=== PATIENT | female | born 1960 | race Caucasian/White ===

== ENCOUNTER 2025-01-20 13:07 | Inpatient (IN) ==
[2025-01-20 13:47] LABS: Hematocrit (blood only) 40.5 % (37.0-47.0); Hemoglobin 13.7 g/dl (12.0-16.0); Immature Granulocytes # (auto) 0.09 K/uL (0.01-0.20); Immature Granulocytes % (auto) 0.9 %; Mean Corpuscular Hemoglobin 31.5 pg (25.0-34.0); Mean Corpuscular Volume 93.1 fL (80.0-100.0); Platelet Count 197 K/uL (130-400); RDW Standard Deviation 47.1 fL (36.4-46.3); Red Blood Count 4.35 M/uL (4.20-5.40); White Blood Count 10.44 K/ul (4.8-10.8)
--- NOTE | 2025-01-20 13:55 | XRay Report ---
XR chest 1V portable CLINICAL HISTORY: Chest pain, nonspecific COMPARISON STUDY: None FINDINGS: There is prominent cardiomegaly with pulmonary vascular congestion. There is diffuse pulmon sue interstitial prominence. No lobar consolidation, pleural effusion, or pneumothorax. IMPRESSION: 1. CHF. 2. Diffuse pulmonary interstitial opacities could represent pulmonary edema or interstitial pneumonia . ACT 112: Negative or not required by law. Electronically signed by: Shiva Avalos M.D. 01/20/2025 1:54 PM
[2025-01-20 14:00] LABS: Alanine Aminotransferase 56.0 U/L (7-52); Albumin Globulin Ratio 1.7 (0.9-2); Alkaline Phosphatase 61.0 U/L (34-104); Anion Gap 6.0 (3-11); Bilirubin,Total 0.6 mg/dl (0.2-1.0); Blood Urea Nitrogen 24.0 mg/dl (6-23); Calcium 8.8 mg/dl (8.6-10.3); Carbon Dioxide 33.0 mmol/L (21-32); Chloride 105.0 mmol/L (98-107); Creatinine Clr Calc Pharmacy 73.5 ml/min; Globulin 2.4 gm/dl (2.5-4.0); Glucose 86.0 mg/dl (70-99(Fasting)); Potassium 3.6 mmol/L (3.5-5.1); Sodium 144.0 mmol/L (136-145); Total Protein 6.5 gm/dl (6.0-8.3)
[2025-01-20 14:12] LABS: INR 1.0 (0.9-1.1); Partial Thromboplastin Time 27 Seconds (21-31); Prothrombin Time 11.3 Seconds (9.0-12.0)
--- NOTE | 2025-01-20 14:37 | Cardiology Consultation ---
Date of Consultation January 20, 2025 Assessment & Plan (1) Acute decompensated heart failure: (2) Volume overload: (3) Elevated troponin: (4) Bradycardia, sinus: (5) Hypertensive heart disease: (6) Diastolic dysfunction: Plan 65-year-old female with longstanding hypertension, hypertensive heart disease, diastolic dysfunction, underlying asthmatic lung disease, type 2 diabetes mellitus, and factor V Leiden mutation admitted to [facility] with evidence of acute decompensated heart failure, marked sinus bradycardia, uncontrolled hypertension. Troponin minimally elevated, without acute ST segment change on EKG, and without overt angina symptoms. Options of management discussed with patient and . Recommendations: * Admit to telemetry * Refer for resting echocardiography * Discontinue indapamide, utilize IV furosemide +/- spironolactone * Supplement potassium * Hold atenolol (50 mg/day) * Likely start carvedilol at 6.25 mg twice per day in the evening of 01/21 * Amlodipine and gabapentin are likely contributing factors to fluid retention. Will continue amlodipine for now noting blood pressures thus far * Continue benazepril, aspirin and atorvastatin Supervising Physician Co-Signing Physician Notes Patient was seen and personally examined. Full assessment and plan as outlined by advanced provider above. Care management discussed and personally endorsed. 65-year-old female with longstanding hypertension/hypertensive heart disease past diastolic heart failure who sought routine medical examination today but noted symptoms of increased weight gain orthopnea and lower extremity edema. E KG with marked sinus bradycardia on review. Echocardiogram today preliminary review Moderate left hypertrophy with borderline global hypokinesis subtle discrete hypokinesis basilar posterior wall. EF 45 to 50%. Grade 2 diastolic Impression as above acute decompensated mixed diastolic, in the setting of marked bradycardia/hypertension Moderate volume overload present abdomen lower extremity edema Plan as outlined Discontinue atenolol (already took today) Maintain telemetry Begin diuresis with IV furosemide, add spironolactone as renal and electrolytes allow History of Present Illness Reason for Consultation: Bradycardia, CHF Requesting Physician: [facility] Attending Physician: Eduardo Villagomezist Service History of Present Illness Nikky Frazier is a very pleasant 65-year-old female who was referred to [facility] ER on , January 20, 2025 due to concerns regarding bradycardia and congestive heart failure. Patient notes obtaining [employer] insurance and establishing care with a new PCP, Dr. Jennifer Bergeron. Over the past month patient has been experiencing worsening shortness of breath that she has attributed to her underlying asthma and changes in the weather. On questioning, patient has a nonproductive cough, orthopnea without PND, significant lower extremity peripheral edema that improves some overnight but does not resolve, and weight gain of 10 to 15 pounds without dietary changes or significant adjustments in medications. Patient attributes issues at nighttime to sciatic pain for which she sleeps on her side and takes gabapentin. Prior testing for sleep apnea was negative for sleep disordered breathing back in April 2012. EKG obtained at PCP's office raised concern for high degree heart block however personal review reveals marked sinus bradycardia with occasional PACs. No chest pain. No tachypalpitations. No excessive fatigue, unusual tiredness, dizziness, lightheadedness, near-syncope, or syncope. Intermittent hypoglycemic episodes noted, associated with feeling clammy and diaphoretic. Patient does have a history of hyperthyroidism treated with nuclear therapy, now hypothyroid with last TSH within normal range in August 2024. No rash. No tick bites. No outside pets (2 indoor cats). Since being placed on the monitor in the ER patient's heart rates have been in 30s and 40s, predominantly marked sinus bradycardia with occasional PACs, rare PVCs with compensatory pause, intermittent junctional rhythm. 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 Low HDL, dyslipidemia. 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 Asthmatic lung disease. Hiatal hernia GERD History of hyperthyroidism [place] teeth extraction Gum Surgery Knee arthroscopy Liver biopsy Cholecystectomy Vaginal hysterectomy Family History: Positive for heart disease in father who suffered myocardial infarction and underwent coronary artery bypass grafting at age 58, passing suddenly of possible myocardial infarction 5 years later. Mother with history of breast cancer, dementia Social History: Non-smoker. No significant alcohol. No illegal drug use. 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 Lives with who was present for entire consultation. Two grown children. Allergies Allergy/AdvReac Type Severity Reaction Status Date / Time coconut Allergy Intermediate Hives Verified 02/25/22 15:05 Sulfa (Sulfonamide Allergy Unknown HIVES Verified 02/25/22 15:05 Antibiotics) azithromycin AdvReac Severe Diarrhea Verified 02/25/22 15:05 Home Medications Medication Instructions Recorded Confirmed Type amlodipine 2.5 mg tablet (Norvasc) 2.5 mg PO QAM 04/20/19 02/25/22 History aspirin 81 mg tablet,delayed 81 mg PO QAM 04/20/19 02/25/22 History release (Enteric Coated Aspirin) atenolol 50 mg tablet 50 mg PO QAM 04/20/19 02/25/22 History atorvastatin 20 mg tablet (Lipitor) 20 mg PO QAM 04/20/19 02/25/22 History benazepril 40 mg tablet 40 mg PO QAM 04/20/19 02/25/22 History calcium carbonate 600 mg PO BID 04/20/19 02/25/22 History cholecalciferol (vitamin D3) 50 2,000 units PO QAM 04/20/19 02/25/22 History mcg (2,000 unit) capsule fexofenadine 180 mg tablet 180 mg PO QAM 04/20/19 02/25/22 History (Jessica Allergy) fluticasone 250 mcg-salmeterol 50 1 puffs inhalation BID 04/20/19 02/25/22 History mcg/dose blistr powdr for inhalation (Advair Diskus) fluticasone propionate 50 2 sprays intranasal QAM 04/20/19 02/25/22 History mcg/actuation nasal spray,suspension (Flonase Allergy Relief) indapamide 2.5 mg tablet 5 mg PO QAM 04/20/19 02/25/22 History insulin aspart U-100 100 unit/mL 1 sliding scale dose subcut 04/20/19 02/25/22 History subcutaneous cartridge (Novolog USEASDIRECTD PenFill U-100 Insulin aspart) insulin glargine 100 unit/mL 90 units subcut AMPM 04/20/19 02/25/22 History subcutaneous solution (Lantus U-100 Insulin) levothyroxine 175 mcg tablet 175 mcg PO QAM 04/20/19 02/25/22 History (Synthroid) metformin 1,000 mg tablet 1,000 mg PO BID 04/20/19 02/25/22 History montelukast 10 mg tablet 10 mg PO QPM 04/20/19 02/25/22 History (Singulair) multivitamin 1 tab PO QAM 04/20/19 02/25/22 History naproxen sodium 220 mg tablet 440 mg PO QAM 04/20/19 02/25/22 History (Flanax (naproxen)) potassium chloride 10 mEq 10 meq PO QAM 04/20/19 02/25/22 History capsule,extended release semaglutide 1 mg/dose (2 mg/1.5 mg subcut 02/25/22 02/25/22 History mL) subcutaneous pen injector (Ozempic) omeprazole 40 mg capsule,delayed See Rx Instructions .Route 09/14/24 Rx release .COMPLEX #90 caps Patient History 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 Surgical History History of esophagogastroduodenoscopy (EGD) (04/2019) H/O vaginal hysterectomy History of carpal tunnel release bilateral History of arthroscopy left knee History of cholecystectomy H/O colonoscopy Family History Father Family history of diabetes mellitus Brother Family history of diabetes mellitus Grandmother (Paternal) Family history of diabetes mellitus Social History Smoking Status: Never smoker Second Hand Exposure: Yes (as a child); Do You Dip or Chew Tobacco: No; Hx Alcohol Use: No Hx Substance Use: No Preferred Language: [place] Communication Ability: Effective Night Shift Manager Required: No Beliefs That Will Affect Care: None marital status: Current Living Situation: Spouse and Family Feels Safe at Home: Yes Assistive Devices: Glasses Review of Systems Review of Systems: Complete Review of Systems is as stated above, negative, or noncontributory. Physical Exam Physical Exam: General: A&Ox3. NAD. Elevated BMI. HENT: Normocephalic. Atraumatic. Eyes: PER. Conjunctiva pink, sclera clear. Neck: JVD. Heart: Irregular, 44 bpm. Grade I-II/ systolic murmur. No diastolic murmur. Lungs: Diminished. Decreased. Scattered rales, expiratory wheeze. Abdomen: +BS. Soft. Nontender. No masses or organomegaly. Extremities: 3+ pitting edema to above the knees. Limited neurological examination is without focal deficits. Pulses: Posterior tibial pulses not appreciated. Results & Data Vital Signs (Past 12 Hours) Vital Signs Temp Pulse Pulse Resp BP Pulse Ox O2 Del Method 01/20/25 14:06 45 L 17 94 Room Air 01/20/25 14:02 36 L 01/20/25 13:49 94 Room Air 01/20/25 13:49 94 Room Air 01/20/25 13:49 52 L 01/20/25 13:48 94 Room Air 01/20/25 13:13 36.6 C 46 L 18 162/75 H 94 Room Air Laboratory Results Cardiac Enzymes 01/20/25 Range/Units 13:20 AST 42 H (13-39) U/L Troponin I High Sens 22.0 H (0-14) pg/ml B-Natriuretic Peptide 211 H (0-100) pg/ml Coagulation 01/20/25 Range/Units 13:20 PT 11.3 (9.0-12.0) Seconds APTT 27 (21-31) Seconds B-Natriuretic Peptide 211 H (0-100) pg/ml CBC 01/20/25 Range/Units 13:20 WBC 10.44 (4.8-10.8) K/ul RBC 4.35 (4.20-5.40) M/uL Hgb 13.7 (12.0-16.0) g/dl Hct 40.5 (37.0-47.0) % Plt Count 197 (130-400) K/uL Neut # (Auto) 6.29 (1.40-6.50) K/uL Lymph # (Auto) 2.54 (1.20-3.40) K/uL Stephens # (Auto) 1.02 H (0.11-0.59) K/uL Eos # (Auto) 0.44 (0.00-0.50) K/uL Baso # (Auto) 0.06 (0.00-0.20) K/uL Comprehensive Metabolic Panel 01/20/25 Range/Units 13:20 Sodium 144 (136-145) mmol/L Potassium 3.6 (3.5-5.1) mmol/L Chloride 105 (98-107) mmol/L Carbon Dioxide 33 H (21-32) mmol/L BUN 24 H (6-23) mg/dl Creatinine 1.05 (0.6-1.2) mg/dl Glucose 86 (70-99(Fasting)) mg/dl Calcium 8.8 (8.6-10.3) mg/dl AST 42 H (13-39) U/L ALT 56 H (7-52) U/L Alkaline Phosphatase 61 (34-104) U/L Total Protein 6.5 (6.0-8.3) gm/dl Albumin 4.1 (3.4-5.0) gm/dl Intake and Output 01/19/25 01/20/25 01/20/25 22:59 06:59 14:59 Other: Weight 125.6 kg Weight Measurement Method Chair Scale Patient Weight 01/21/25 06:59 Weight 125.6 kg Diagnostic Findings Outpatient EKG x 2 personally reviewed, revealing marked sinus bradycardia with premature supraventricular complexes, nonspecific interventricular conduction block. EKG on presentation to the ER revealed marked sinus bradycardia 43 bpm with sinus arrhythmia, nonspecific interventricular conduction delay, voltage criteria for LVH, nonspecific STT wave abnormality. QTc 408 ms. PG Care Time/CCT Total # of Minutes Spent Total Time Spent with Patient: Total time spent is greater than 50% in coordination of care (as documented) at patient's floor/unit and/or counseling patient: Coding Level of Care Code 56613 IN/OBS CONSULT LVL 5,80M Diagnoses Acute decompensated heart failure I50.9 Volume overload E87.70 Elevated troponin R79.89 Bradycardia, sinus R00.1 Hypertensive heart disease I11.9 Diastolic dysfunction I51.89
--- NOTE | 2025-01-20 14:43 | Emergency Department Note ---
Impression & Plan Acute CHF, Bilateral leg edema, Bradycardia, sinus, Elevated troponin, Elevated brain natriuretic peptide (BNP) level, Transaminitis, Pulmonary edema ED Provider Note HISTORY OF PRESENT ILLNESS: Patient is a 65-year-old female presenting with lower extremity edema. Patient was sent for her primary care provider's office due to concern for potential heart block. She was found to be bradycardic and had a "abnormal EKG" and was sent to the ER. Patient reports she has been having lower extremity edema for the last month. She is not on any diuretic medications. She denies any chest pain but does report she is intermittently short of breath. She denies any DVT or PE history. Denies any history of heart failure. She denies feeling lightheaded or dizzy. ROS: as above PHYSICAL EXAM: Constitutional: Patient appears in no acute distress. HENT: Head: Normocephalic and atraumatic. Eyes: EOMI, PERRL Mouth/Throat: Mucous membranes moist. Neck: Trachea midline. Neck supple. Cardiovascular: RRR, No murmurs, rubs or gallops. Intact distal pulses. Pulmonary/Chest: No respiratory distress. Breath sounds clear and equal bilaterally. Coarse breath sounds bilaterally. Patient is conversationally dyspneic. Abdominal: Abdomen soft, no tenderness, rebound or guarding. Musculoskeletal: No tenderness or deformity noted. +3 pitting edema of bilateral lower extremities extending to the tibia. Skin: Warm and dry. No rash, erythema, pallor or cyanosis Psychiatric: Appropriate mood and affect for situation. Neurological: Alert and keenly responsive. CN II-XII grossly intact, moving all extremities equally and fully. MDM: - Vitals signs showed hypertension and bradycardia. - History obtained via patient. History as above. - Chronic conditions affecting care: hypothyroidism; HTN; HLD - Differential diagnoses include, but are not limited to: Congestive heart failure; acute coronary syndrome; COPD/asthma exacerbation; pulmonary edema; pulmonary embolism; pneumonia; pneumothorax; viral syndrome - Order placed for continuous cardiac monitoring. At this time, monitor showed rate of 44 bpm with normal sinus rhythm, per my interpretation. - External medical records reviewed. - EKG image interpreted by myself showed normal sinus rhythm. Rate bradycardic at 43 bpm. QT 484. No acute ischemic changes. - Cardiology SHELTON, Bhavin Hairston, came to evaluate the patient in the emergency department after being called by the patient's primary care provider. He states that his clinic was called that the patient was in heart block and he decided to come and check on the patient. He reports that she appears to be in sinus bradycardia. Recommends she be admitted for diuresis and an echocardiogram and medication adjustments, as patient sotalol should be switched around. - Laboratory workup interpreted by myself showed normal WBC; normal PT/INR; stable electrolytes; transaminitis (AST 42; ALT 56); normal total bilirubin; elevated troponin (22.0); elevated BNP (211) - CXR image reviewed by myself shows pulmonary edema, per my interpretation. Radiology notes CHF and diffuse pulmonary interstitial opacities concerning for pulmonary edema or interstitial pneumonia. - Patient given 40 mg IV lasix. - Discussion was had with family service caseworker about patient's case and need for admission - Hospitalist consulted for admission - [facility] ASSESSMENT AND PLAN: Diagnosis: Acute CHF; bilateral lower extremity edema; sinus bradycardia; elevated troponin; elevated BNP; transaminitis; pulmonary edema Plan: Admit Past Med/Surg History Problem List (Updated 01/20/25 @ 15:06 by Meghan Aguero MD) Pulmonary edema (Acute) Transaminitis (Acute) Elevated brain natriuretic peptide (BNP) level (Acute) Elevated troponin (Acute) Diastolic dysfunction Hypertensive heart disease Elevated troponin Volume overload Acute decompensated heart failure Bradycardia, sinus (Acute) Bilateral leg edema (Acute) Acute CHF (Acute) Acid reflux Carpal tunnel syndrome (Acute) Dysphagia Factor V deficiency no history of DVT Hypertension Hypothyroidism (Chronic) Diabetes (Chronic) IDDM Right facial numbness minimal numbness in lower lip and chin area following moya's palsy. 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 Surgical History History of esophagogastroduodenoscopy (EGD) (04/2019) H/O vaginal hysterectomy History of carpal tunnel release bilateral History of arthroscopy left knee History of cholecystectomy H/O colonoscopy Family History Father Family history of diabetes mellitus Brother Family history of diabetes mellitus Grandmother (Paternal) Family history of diabetes mellitus Social History Smoking Status: Never smoker Second Hand Exposure: Yes (as a child); Do You Dip or Chew Tobacco: No; Hx Alcohol Use: No Hx Substance Use: No Preferred Language: Lithuanian Communication Ability: Effective Pattern Molder Required: No Beliefs That Will Affect Care: None marital status: Current Living Situation: Spouse and Family Feels Safe at Home: Yes Assistive Devices: Glasses Allergies Allergies Allergy/AdvReac Type Severity Reaction Status Date / Time coconut Allergy Intermediate Hives Verified 02/25/22 15:05 Sulfa (Sulfonamide Allergy Unknown HIVES Verified 02/25/22 15:05 Antibiotics) azithromycin AdvReac Severe Diarrhea Verified 02/25/22 15:05 Home Meds Home Medications Medication Instructions Recorded Confirmed amlodipine 2.5 mg tablet (Norvasc) 2.5 mg PO QAM 04/20/19 02/25/22 aspirin 81 mg tablet,delayed 81 mg PO QAM 04/20/19 02/25/22 release (Enteric Coated Aspirin) atenolol 50 mg tablet 50 mg PO QAM 04/20/19 02/25/22 atorvastatin 20 mg tablet (Lipitor) 20 mg PO QAM 04/20/19 02/25/22 benazepril 40 mg tablet 40 mg PO QAM 04/20/19 02/25/22 calcium carbonate 600 mg PO BID 04/20/19 02/25/22 cholecalciferol (vitamin D3) 50 2,000 units PO QAM 04/20/19 02/25/22 mcg (2,000 unit) capsule fexofenadine 180 mg tablet 180 mg PO QAM 04/20/19 02/25/22 (Jessica Allergy) fluticasone 250 mcg-salmeterol 50 1 puffs inhalation BID 04/20/19 02/25/22 mcg/dose blistr powdr for inhalation (Advair Diskus) fluticasone propionate 50 2 sprays intranasal QAM 04/20/19 02/25/22 mcg/actuation nasal spray,suspension (Flonase Allergy Relief) indapamide 2.5 mg tablet 5 mg PO QAM 04/20/19 02/25/22 insulin aspart U-100 100 unit/mL 1 sliding scale dose subcut 04/20/19 02/25/22 subcutaneous cartridge (Novolog USEASDIRECTD PenFill U-100 Insulin aspart) insulin glargine 100 unit/mL 90 units subcut AMPM 04/20/19 02/25/22 subcutaneous solution (Lantus U-100 Insulin) levothyroxine 175 mcg tablet 175 mcg PO QAM 04/20/19 02/25/22 (Synthroid) metformin 1,000 mg tablet 1,000 mg PO BID 04/20/19 02/25/22 montelukast 10 mg tablet 10 mg PO QPM 04/20/19 02/25/22 (Singulair) multivitamin 1 tab PO QAM 04/20/19 02/25/22 naproxen sodium 220 mg tablet 440 mg PO QAM 04/20/19 02/25/22 (Flanax (naproxen)) potassium chloride 10 mEq 10 meq PO QAM 04/20/19 02/25/22 capsule,extended release semaglutide 1 mg/dose (2 mg/1.5 mg subcut 02/25/22 02/25/22 mL) subcutaneous pen injector (Ozempic) Previous Rx's Medication Instructions Recorded omeprazole 40 mg capsule,delayed See Rx Instructions .Route 09/14/24 release .COMPLEX #90 caps Results & Data (ED) Vital Signs Vital Signs - 24 hr 01/20/25 13:13 01/20/25 13:48 01/20/25 13:49 Temperature 36.6 C Temperature Source Temporal Artery Scan Pulse Rate 46 L Pulse Rate [Apical] 52 L Pulse Rate from SpO2 Sensor 43 L Respiratory Rate 18 Respiratory Effort / Characteristics Non-Labored Spontaneous Respiratory Depth Normal Respiratory Pattern Regular Blood Pressure 162/75 H Blood Pressure Mean 104 Pulse Oximetry 94 94 Oxygen Delivery Method Room Air Room Air Sepsis Recent Fever Within 48 Hours No Sepsis New/Unexplained Change in Mental Status N/A Sepsis Action Taken by Nursing No Action Required 01/20/25 13:49 01/20/25 13:49 01/20/25 14:02 Temperature Temperature Source Pulse Rate 36 L Pulse Rate [Apical] Pulse Rate from SpO2 Sensor Respiratory Rate Respiratory Effort / Characteristics Respiratory Depth Respiratory Pattern Blood Pressure Blood Pressure Mean Pulse Oximetry 94 94 Oxygen Delivery Method Room Air Room Air Sepsis Recent Fever Within 48 Hours Sepsis New/Unexplained Change in Mental Status Sepsis Action Taken by Nursing 01/20/25 14:06 Temperature Temperature Source Pulse Rate 45 L Pulse Rate [Apical] Pulse Rate from SpO2 Sensor 40 L Respiratory Rate 17 Respiratory Effort / Characteristics Respiratory Depth Respiratory Pattern Blood Pressure Blood Pressure Mean Pulse Oximetry 94 Oxygen Delivery Method Room Air Sepsis Recent Fever Within 48 Hours Sepsis New/Unexplained Change in Mental Status Sepsis Action Taken by Nursing Laboratory Data 01/20/25 13:20 01/20/25 13:20 Lab Results 01/20/25 Range/Units 13:20 WBC 10.44 (4.8-10.8) K/ul RBC 4.35 (4.20-5.40) M/uL Hgb 13.7 (12.0-16.0) g/dl Hct 40.5 (37.0-47.0) % MCV 93.1 (80.0-100.0) fL MCH 31.5 (25.0-34.0) pg MCHC 33.8 (32.0-36.0) g/dL RDW Std Deviation 47.1 H (36.4-46.3) fL RDW Coeff of Thaddeus 14.0 (11.5-14.5) % Plt Count 197 (130-400) K/uL MPV 11.2 (9.4-12.4) fL Immature Gran % (Auto) 0.9 % Neut % (Auto) 60.2 % Lymph % (Auto) 24.3 % [place] % (Auto) 9.8 % Eos % (Auto) 4.2 % Baso % (Auto) 0.6 % Neut # (Auto) 6.29 (1.40-6.50) K/uL Lymph # (Auto) 2.54 (1.20-3.40) K/uL [place] # (Auto) 1.02 H (0.11-0.59) K/uL Eos # (Auto) 0.44 (0.00-0.50) K/uL Baso # (Auto) 0.06 (0.00-0.20) K/uL Immature Gran # (Auto) 0.09 (0.01-0.20) K/uL PT 11.3 (9.0-12.0) Seconds INR 1.0 (0.9-1.1) APTT 27 (21-31) Seconds PTT Ratio 1.0 Sodium 144 (136-145) mmol/L Potassium 3.6 (3.5-5.1) mmol/L Chloride 105 (98-107) mmol/L Carbon Dioxide 33 H (21-32) mmol/L Anion Gap 6 (3-11) BUN 24 H (6-23) mg/dl Creatinine 1.05 (0.6-1.2) mg/dl Est Cr Clr Drug Dosing 73.5 ml/min eGFR 58.96 BUN/Creatinine Ratio 22.9 H (10-20) Glucose 86 (70-99(Fasting)) mg/dl Calcium 8.8 (8.6-10.3) mg/dl Total Bilirubin 0.6 (0.2-1.0) mg/dl AST 42 H (13-39) U/L ALT 56 H (7-52) U/L Alkaline Phosphatase 61 (34-104) U/L Troponin I High Sens 22.0 H (0-14) pg/ml B-Natriuretic Peptide 211 H (0-100) pg/ml Total Protein 6.5 (6.0-8.3) gm/dl Albumin 4.1 (3.4-5.0) gm/dl Globulin 2.4 L (2.5-4.0) gm/dl Albumin/Globulin Ratio 1.7 (0.9-2) Imaging Data Radiologist's Impression: Chest X-Ray 01/20/25 13:16 XR chest 1V portable CLINICAL HISTORY: Chest pain, nonspecific COMPARISON STUDY: None FINDINGS: There is prominent cardiomegaly with pulmonary vascular congestion. There is diffuse pulmonary interstitial prominence. No lobar consolidation, pleural effusion, or pneumothorax. IMPRESSION: 1. CHF. 2. Diffuse pulmonary interstitial opacities could represent pulmonary edema or interstitial pneumonia. ACT 112: Negative or not required by law. Electronically signed by: Shiva Avalos M.D. 01/20/2025 1:54 PM Discharge Plan Visit Data Chief Complaint: Abnormal Labs/Diagnostic Testing Stated Complaint: SLOW PULSE, EKG ABNORMALITIES ED Provider: Meghan Aguero Discharge Problem: Acute CHF, Bilateral leg edema, Bradycardia, sinus, Elevated troponin, Elevated brain natriuretic peptide (BNP) level, Transaminitis, Pulmonary edema Condition: Fair Forms Stand Alone Forms: [facility] [employer] Prescriptions Prescriptions: No Action omeprazole 40 mg capsule,delayed release(DR/EC) See Rx Instructions .ROUTE .COMPLEX Qty: 90 2RF Dose Instruction: TAKE 1 CAPSULE BY MOUTH EVERY DAY Rx Instructions: TAKE 1 CAPSULE BY MOUTH EVERY DAY potassium chloride 10 mEq capsule, extended release 10 meq PO QAM naproxen sodium [Flanax (naproxen)] 220 mg tablet 440 mg PO QAM multivitamin tablet 1 tab PO QAM montelukast [Singulair] 10 mg tablet 10 mg PO QPM calcium carbonate 600 mg calcium (1,500 mg) tablet 600 mg PO BID benazepril 40 mg tablet 40 mg PO QAM atorvastatin [Lipitor] 20 mg tablet 20 mg PO QAM atenolol 50 mg tablet 50 mg PO QAM aspirin [Enteric Coated Aspirin] 81 mg tablet,delayed release (DR/EC) 81 mg PO QAM amlodipine [Norvasc] 2.5 mg tablet 2.5 mg PO QAM metformin 1,000 mg tablet 1,000 mg PO BID levothyroxine [Synthroid] 175 mcg tablet 175 mcg PO QAM indapamide 2.5 mg tablet 5 mg PO QAM Lantus U-100 Insulin 100 unit/mL solution 90 units SQ AMPM Novolog PenFill U-100 Insulin 100 unit/mL cartridge 1 sliding scale dose SQ USEASDIRECTD fluticasone propionate [Flonase Allergy Relief] 50 mcg/actuation spray,suspension 2 sprays INTNAS QAM fluticasone propion-salmeterol [Advair Diskus] 250-50 mcg/dose blister with device 1 puffs INH BID fexofenadine [Jessica Allergy] 180 mg tablet 180 mg PO QAM cholecalciferol (vitamin D3) 2,000 unit capsule 2,000 units PO QAM Ozempic 1 mg/dose (2 mg/1.5 mL) pen injector subcut Referrals Referrals: Jennifer Bergeron DO [Primary Care Provider] -
--- NOTE | 2025-01-20 14:48 | Electrocardiogram Report ---
Test Reason : Blood Pressure : */* mmHG Vent. Rate : 43 BPM Atrial Rate : 43 BPM P-R Int : 188 ms QRS Dur : 124 ms QT Int : 484 ms P-R-T Axes : 89 30 -39 degrees QTcB Int : 408 ms Marked sinus bradycardia with marked sinus arrhythmia Non-specific intra-ventricular conduction delay Minimal voltage criteria for LVH, may be normal variant Nonspecific ST and T wave abnormality Abnormal ECG No previous ECGs available Confirmed by Ovi Painter ([id number]) on 01/20/2025 2:48:30 PM Referred By: Confirmed By: Ovi Painter
[2025-01-20] MEDS: FUROSEMIDE 40 MG/4 ML VIAL IV ONE (15:24)
[2025-01-20] MEDS: POTASSIUM CHLORIDE CRTAB 20 MEQ TABCR PO ONE (15:29)
--- NOTE | 2025-01-20 15:41 | History & Physical Report ---
Date of Service January 20, 2025 Assessment & Plan (1) Acute decompensated heart failure: Plan: History of hypertensive heart disease and diastolic dysfunction Presented with increasing leg swelling and weight gain with exertional shortness of breath and noted to be very bradycardic Likely secondary to diastolic dysfunction and is contributed by significant bradycardia Will give Lasix 40 mg IV twice daily with electrolyte replacement Monitor intake output Will get an echo to evaluate LV function Appreciate cardiology input and recommendation Elevated troponin Mildly elevated could be secondary to her stress and doubt any ACS Bradycardia without any ST-T wave changes Will trend troponins and get an echo (2) Pulmonary edema: (3) Diastolic dysfunction: (4) Bradycardia, sinus: Plan: Has been on atenolol 50 mg twice daily Noted to be bradycardic at doctor's office Will discontinue atenolol and follow the cardiology recommendation (5) Hypertensive heart disease: Plan: Has been on atenolol, benazepril and also amlodipine for blood pressure control Blood pressure remains mildly elevated in the emergency room at 165/75 Will discontinue atenolol and continue with benazepril and amlodipine Likely to add another medications as per cardiology recommendation (6) Factor V deficiency: Plan: No history of DVT and/or embolism Has not been taking any medications that is anticoagulation for known history of factor V Leiden deficiency (7) Hypothyroidism: Plan: Continue supplement (8) Type II diabetes mellitus: Plan: Will hold metformin Continue with insulin and put her on sliding scale insulin coverage Check hemoglobin A1c (9) Asthma: Plan: History of asthma Controlled now with current medications and will continue Will prescribe as needed nebulizers in case she is wheezing and more shortness of breath DVT prophylaxis subcu heparin CODE STATUS full History of Present Illness Chief Complaint: Bilateral leg swelling, weight gain and shortness of breath with minimal exertion for about 1 month Primary Care Provider: Jennifer Bergeron DO She is a 65-year-old obese female with significant past medical history of longstanding hypertension, hypertensive heart disease, with diastolic dysfunction, type 2 diabetes on insulin, factor V Leiden mutation and also asthma apparently has been complaining of swelling of the legs associated with increasing weight gain of about 10 to 12 pounds over 1 month. She complains to have shortness of breath with exertion but denies any chest pain and/or palpitation. She denies any abdominal pain, any nausea or vomiting and does not have any urinary and/or bowel problem. She went to see her PCP this morning and was noted to be very bradycardic and was sent into ER for further evaluation noted to have acute decompensated heart failure with significant bradycardia associated with fluid overload. She will be admitted to telemetry unit for continued care. Allergies Allergy/AdvReac Type Severity Reaction Status Date / Time coconut Allergy Intermediate Hives Verified 02/25/22 15:05 Sulfa (Sulfonamide Allergy Unknown HIVES Verified 02/25/22 15:05 Antibiotics) azithromycin AdvReac Severe Diarrhea Verified 02/25/22 15:05 Home Medications Medication Instructions Recorded Confirmed Type amlodipine 2.5 mg tablet (Norvasc) 2.5 mg PO QAM 04/20/19 02/25/22 History aspirin 81 mg tablet,delayed 81 mg PO QAM 04/20/19 02/25/22 History release (Enteric Coated Aspirin) atenolol 50 mg tablet 50 mg PO QAM 04/20/19 02/25/22 History atorvastatin 20 mg tablet (Lipitor) 20 mg PO QAM 04/20/19 02/25/22 History benazepril 40 mg tablet 40 mg PO QAM 04/20/19 02/25/22 History calcium carbonate 600 mg PO BID 04/20/19 02/25/22 History cholecalciferol (vitamin D3) 50 2,000 units PO QAM 04/20/19 02/25/22 History mcg (2,000 unit) capsule fexofenadine 180 mg tablet 180 mg PO QAM 04/20/19 02/25/22 History (Jessica Allergy) fluticasone 250 mcg-salmeterol 50 1 puffs inhalation BID 04/20/19 02/25/22 History mcg/dose blistr powdr for inhalation (Advair Diskus) fluticasone propionate 50 2 sprays intranasal QAM 04/20/19 02/25/22 History mcg/actuation nasal spray,suspension (Flonase Allergy Relief) indapamide 2.5 mg tablet 5 mg PO QAM 04/20/19 02/25/22 History insulin aspart U-100 100 unit/mL 1 sliding scale dose subcut 04/20/19 02/25/22 History subcutaneous cartridge (Novolog USEASDIRECTD PenFill U-100 Insulin aspart) insulin glargine 100 unit/mL 90 units subcut AMPM 04/20/19 02/25/22 History subcutaneous solution (Lantus U-100 Insulin) levothyroxine 175 mcg tablet 175 mcg PO QAM 04/20/19 02/25/22 History (Synthroid) metformin 1,000 mg tablet 1,000 mg PO BID 04/20/19 02/25/22 History montelukast 10 mg tablet 10 mg PO QPM 04/20/19 02/25/22 History (Singulair) multivitamin 1 tab PO QAM 04/20/19 02/25/22 History naproxen sodium 220 mg tablet 440 mg PO QAM 04/20/19 02/25/22 History (Flanax (naproxen)) potassium chloride 10 mEq 10 meq PO QAM 04/20/19 02/25/22 History capsule,extended release semaglutide 1 mg/dose (2 mg/1.5 mg subcut 02/25/22 02/25/22 History mL) subcutaneous pen injector (Ozempic) omeprazole 40 mg capsule,delayed See Rx Instructions .Route 09/14/24 Rx release .COMPLEX #90 caps Past Med/Surg History Problem List (Updated 01/20/25 @ 15:44 by Glenda Escalona MD) Type II diabetes mellitus Pulmonary edema (Acute) Transaminitis (Acute) Elevated brain natriuretic peptide (BNP) level (Acute) Elevated troponin (Acute) Diastolic dysfunction Hypertensive heart disease Elevated troponin Volume overload Acute decompensated heart failure Bradycardia, sinus (Acute) Bilateral leg edema (Acute) Acute CHF (Acute) Acid reflux Carpal tunnel syndrome (Acute) Dysphagia Factor V deficiency no history of DVT Hypertension Hypothyroidism (Chronic) Diabetes (Chronic) IDDM Right facial numbness minimal numbness in lower lip and chin area following moya's palsy. 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 Surgical History History of esophagogastroduodenoscopy (EGD) (04/2019) H/O vaginal hysterectomy History of carpal tunnel release bilateral History of arthroscopy left knee History of cholecystectomy H/O colonoscopy Family History Father Family history of diabetes mellitus Brother Family history of diabetes mellitus Grandmother (Paternal) Family history of diabetes mellitus Social History Smoking Status: Never smoker Second Hand Exposure: Yes (as a child); Do You Dip or Chew Tobacco: No; Hx Alcohol Use: No Hx Substance Use: No Preferred Language: Somali Communication Ability: Effective Assistant Manager Required: No Beliefs That Will Affect Care: None marital status: Current Living Situation: Spouse and Family Feels Safe at Home: Yes Assistive Devices: Glasses Review of Systems Review of Systems: All systems reviewed and are unremarkable except as noted below Physical Exam Physical Exam: Lying in bed without any acute distress Constitutional: well developed, well nourished, + ill appearing and + morbidly obese Eyes: PERRL, conjunctivae normal, anicteric sclerae ENMT: external ear and nose normal, oropharynx normal Neck: trachea midline, no thyromegaly Respiratory: no respiratory distress Auscultation: + diminished lung sounds and + crackles ( minimal bibasilar crackles); no wheezes Cardiovascular: Rate/Rhythm: regular rate, regular rhythm and + bradycardic Heart Sounds: normal S1 and normal S2; no murmur Extremities: + edema ( 2+ edema bilaterally) Gastrointestinal (Abdomen): Inspection/Auscultation: + abdomen distended and normal bowel sounds Percussion/Palpation: abdomen soft; abdomen nontender Musculoskeletal: No acute arthritis involving any of the joint Neurologic: normal touch/pain/proprioception and moves all extremities; no focal motor deficits Lymphatic: no cervical or axillary lymphadenopathy Results & Data Results & Data Vital Signs (Past 12 Hours) Vital Signs Temp Pulse Pulse Resp BP BP Pulse Ox 01/20/25 15:21 45 L 21 165/75 H 94 01/20/25 14:06 45 L 17 94 01/20/25 14:02 36 L 01/20/25 13:49 94 01/20/25 13:49 94 01/20/25 13:49 52 L 01/20/25 13:48 94 01/20/25 13:13 36.6 C 46 L 18 162/75 H 94 O2 Del Method 01/20/25 15:21 Room Air 01/20/25 14:06 Room Air 01/20/25 14:02 01/20/25 13:49 Room Air 01/20/25 13:49 Room Air 01/20/25 13:49 01/20/25 13:48 Room Air 01/20/25 13:13 Room Air Laboratory Results Short CBC 01/20/25 Range/Units 13:20 WBC 10.44 (4.8-10.8) K/ul Hgb 13.7 (12.0-16.0) g/dl Hct 40.5 (37.0-47.0) % Plt Count 197 (130-400) K/uL BMP 01/20/25 13:20 Sodium 144 Potassium 3.6 Chloride 105 Carbon Dioxide 33 H BUN 24 H Creatinine 1.05 Glucose 86 Calcium 8.8 Liver Function 01/20/25 Range/Units 13:20 Total Bilirubin 0.6 (0.2-1.0) mg/dl AST 42 H (13-39) U/L ALT 56 H (7-52) U/L Alkaline Phosphatase 61 (34-104) U/L Albumin 4.1 (3.4-5.0) gm/dl Medications Administered Current Inpatient Medications Furosemide (Furosemide 40 Mg/4 Ml Vial) 40 mg IV BID ALEXUS Stop: 02/19/25 20:59 Heparin Sodium (Porcine) (Heparin Sod 5,000 Unit/0.5 Ml Vial) 5,000 units SQ Q8 ALEXUS Stop: 02/19/25 21:59 Code Status & VTE Plan VTE Prophylaxis Plan VTE Prophylaxis will be ordered: Yes
[2025-01-20] MEDS ORDERED: GLUCOSE 40% GEL 15 GM TUBE PO PRN (15:53)
[2025-01-20] MEDS ORDERED: DEXTROSE 50% 50 ML SYRINGE IV PRN (15:53)
[2025-01-20] MEDS ORDERED: GLUCAGON FOR INJ 1 MG VIAL SQ PRN (15:53)
[2025-01-20] MEDS ORDERED: CARBOHYDRATES FOR HYPOGLYCEMIA PO PRN (15:53)
[2025-01-20] MEDS ORDERED: GLUCOSE 10 TAB/TUBE PO PRN (15:53)
[2025-01-20] MEDS: INSULIN ASPART PER UNIT CHARGE SC SCH (18:46)
[2025-01-20] MEDS: CALCIUM CARBONATE 1250MG TAB PO SCH (21:11)
[2025-01-20] MEDS: HEPARIN SOD 5,000 UNIT/0.5 ML VIAL SQ SCH (21:12)
[2025-01-20] MEDS: FUROSEMIDE 40 MG/4 ML VIAL IV SCH (21:12)
[2025-01-20] MEDS: LANTUS PER UNIT CHARGE SQ SCH (21:12)
[2025-01-20] MEDS: MONTELUKAST SODIUM 10 MG TABLET PO SCH (21:12)
[2025-01-21] MEDS: INSULIN ASPART PER UNIT CHARGE SC SCH (00:01)
[2025-01-21] MEDS: FLUTICASONE/VILANTEROL 200/25MCG 14 PUFFS/INHALER INH SCH (03:31)
[2025-01-21] MEDS: LEVOTHYROXINE SODIUM 175 MCG TABLET PO SCH (05:51)
[2025-01-21 06:26] LABS: Hematocrit (blood only) 38.8 % (37.0-47.0); Hemoglobin 12.8 g/dl (12.0-16.0); Immature Granulocytes # (auto) 0.04 K/uL (0.01-0.20); Immature Granulocytes % (auto) 0.5 %; Mean Corpuscular Hemoglobin 30.8 pg (25.0-34.0); Mean Corpuscular Volume 93.5 fL (80.0-100.0); Platelet Count 167 K/uL (130-400); RDW Standard Deviation 48.1 fL (36.4-46.3); Red Blood Count 4.15 M/uL (4.20-5.40); White Blood Count 8.67 K/ul (4.8-10.8)
[2025-01-21 07:03] LABS: Anion Gap 6.0 (3-11); Blood Urea Nitrogen 23.0 mg/dl (6-23); Calcium 8.7 mg/dl (8.6-10.3); Carbon Dioxide 36.0 mmol/L (21-32); Chloride 103.0 mmol/L (98-107); Creatinine Clr Calc Pharmacy 63.7 ml/min; Glucose 61.0 mg/dl (70-99(Fasting)); Magnesium 1.7 mg/dl (1.7-2.4); Potassium 3.3 mmol/L (3.5-5.1); Sodium 145.0 mmol/L (136-145)
[2025-01-21 07:39] LABS: Hemoglobin A1C 6.6 % (4.5-5.6)
[2025-01-21] MEDS ORDERED: PHARMACY GLYCEMIC MGMT CONSULT PRN (07:41)
[2025-01-21] MEDS: LANTUS PER UNIT CHARGE SQ SCH ×2 (08:28→20:37)
[2025-01-21] MEDS: ASPIRIN 81 MG ECTAB PO SCH (08:30)
[2025-01-21] MEDS: FEXOFENADINE HCL 180 MG TAB PO SCH (08:30)
[2025-01-21] MEDS: ENALAPRIL MALEATE 10 MG TAB PO SCH ×2 (08:30→20:39)
[2025-01-21] MEDS: ATORVASTATIN 20 MG TAB PO SCH (08:31)
[2025-01-21] MEDS: MULTIVITAMIN TAB PO SCH (08:31)
[2025-01-21] MEDS: FLUTICASONE PROPIONATE NA SPR 16 GM BTL SCH (08:31)
--- NOTE | 2025-01-21 13:35 | Cardiology Progress Note ---
Date of Service January 21, 2025 Assessment & Plan (1) Acute decompensated heart failure: (2) Volume overload: (3) Elevated troponin: (4) Bradycardia, sinus: (5) Hypertensive heart disease: (6) Diastolic dysfunction: Plan 65-year-old female with longstanding hypertension, hypertensive heart disease, diastolic dysfunction, underlying asthmatic lung disease, type 2 diabetes mellitus, and factor V Leiden mutation admitted to [facility] with evidence of acute decompensated heart failure, marked sinus bradycardia, uncontrolled hypertension. Troponin minimally elevated, without acute ST segment change on EKG, and without overt angina symptoms. 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 Cal Esparza MD Admission and Anticipated Discharge Date Admission Date: January 20, 2025 Subjective Lost 9lbs since yesterday. No chest pain. No N/V/CUI; afebrile. No PND or orthopnea Review of Systems Review of Systems: Complete Review of Systems is as stated above, negative, or noncontributory. Physical Exam Physical Exam: GEN: AAOx3; NAD; Cuschinoid appearance HEENT: No JVD CV: RRR; S1+S2; no M/R/G PULM: CTA b/l; no W/R/R ABD: soft; NTND; obese EXT: 2+ Lower extremity edema Results & Data Vital Signs (Past 12 Hours) Vital Signs Temp Pulse Pulse Resp BP BP Pulse Ox 01/21/25 11:12 36.8 C 44 L 18 168/80 H 95 01/21/25 10:22 47 L 01/21/25 07:27 36.6 C 48 L 18 184/71 H 92 01/21/25 03:01 36.6 C 48 L 18 177/90 H 92 O2 Del Method 01/21/25 11:12 Room Air 01/21/25 10:22 01/21/25 07:27 Room Air 01/21/25 03:01 Room Air Results BMP Results: Sodium 145 mmol/L (136-145) 01/21/25 Potassium 3.3 mmol/L (3.5-5.1) L 01/21/25 Chloride 103 mmol/L (98-107) 01/21/25 Carbon Dioxide 36 mmol/L (21-32) H 01/21/25 Anion Gap 6 (3-11) 01/21/25 BUN 23 mg/dl (6-23) 01/21/25 Creatinine 1.19 mg/dl (0.6-1.2) 01/21/25 Glucose 61 mg/dl (70-99(Fasting)) L 01/21/25 Results Cardiology Web EHR Widget: Cardiology Consultation 01/20/25 14:36 Electrocardiogram 01/20/25 13:18 Echocardiogram 01/20/25 16:00 Troponin I High Sens 24.0 pg/ml (0-14) H 01/20/25 20:56 B-Natriuretic Peptide 211 pg/ml (0-100) H 01/20/25 13:20 APTT 27 Seconds (21-31) 01/20/25 13:20 PT 11.3 Seconds (9.0-12.0) 01/20/25 13:20 INR 1.0 (0.9-1.1) 01/20/25 13:20 Sodium 145 mmol/L (136-145) 01/21/25 05:42 Potassium 3.3 mmol/L (3.5-5.1) L 01/21/25 05:42 BUN 23 mg/dl (6-23) 01/21/25 05:42 Creatinine 1.19 mg/dl (0.6-1.2) 01/21/25 05:42 Glucose 61 mg/dl (70-99(Fasting)) L 01/21/25 05:42 Hemoglobin A1c 6.6 % (4.5-5.6) H 01/21/25 05:42 Magnesium 1.7 mg/dl (1.7-2.4) 01/21/25 05:42 AST 42 U/L (13-39) H 01/20/25 13:20 ALT 56 U/L (7-52) H 01/20/25 13:20 WBC 8.67 K/ul (4.8-10.8) 01/21/25 05:42 Hgb 12.8 g/dl (12.0-16.0) 01/21/25 05:42 Plt Count 167 K/uL (130-400) 01/21/25 05:42 PG Care Time/CCT Total # of Minutes Spent Total Time Spent with Patient: Total time spent is greater than 50% in coordination of care (as documented) at patient's floor/unit and/or counseling patient: Coding [place] [address] SUB INP/OBS CARE 3/50MIN Patient Type Established History Detailed Exam Detailed Medical Decision Making Moderate Complexity Diagnoses Acute decompensated heart failure I50.9 Volume overload E87.70 Elevated troponin R79.89 Bradycardia, sinus R00.1 Hypertensive heart disease I11.9 Diastolic dysfunction I51.89 Time Spent (min) 50
--- NOTE | 2025-01-21 13:47 | Hospitalist Progress Note ---
Date of Service January 21, 2025 Assessment & Plan (1) Acute decompensated heart failure: (2) Pulmonary edema: (3) Diastolic dysfunction: (4) Bradycardia, sinus: (5) Hypertensive heart disease: Plan: History of hypertensive heart disease and diastolic dysfunction Presented with increasing leg swelling and weight gain with exertional shortness of breath EKG shows sinus bradycardia Echocardiogram shows EF slightly reduced to 45 to 50% with mod concentric LVH. 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 Hypertensive urgency Amlodipine increased to 10 mg every day Enalapril increased to twice daily Sinus bradycardia - monitor for significant pause; hold atenolol Elevated troponin Mildly elevated could be secondary to hypertension; monitor for chest pain (6) Factor V deficiency: Plan: No history of DVT and/or embolism Has not been taking any medications that is anticoagulation for known history of factor V Leiden deficiency (7) Hypothyroidism: Plan: Continue home meds (8) Type II diabetes mellitus: Plan: Will hold metformin Continue with insulin and put her on sliding scale insulin coverage (9) Asthma: Plan: History of asthma Controlled now with current medications and will continue Will prescribe as needed nebulizers in case she is wheezing and more shortness of breath DVT prophylaxis subcu heparin CODE STATUS water and gas helper spent evaluating patient, direct bedside care, chart review, placing orders, interpretation of diagnostic studies, discussion with consultants, patient, and family members, as well as other required patient management activities is 50 minutes please note the above document was generated using voice recognition software. It may contain grammatical, syntax or spelling errors. Any formal questions or concerns about the content, text or information contained within the body of this dictation should be directly addressed to the provider for clarification Admission and Anticipated Discharge Date Admission Date: January 20, 2025 Subjective Patient reports that she is feeling much better. Reports that she lost 9 pounds Urine output of 3L Review of Systems Review of Systems: All systems reviewed & are unremarkable except as noted in Subjective Physical Exam Physical Exam: Constitutional: Alert oriented x 3; not in distress. Respiratory: normal respiratory effort, lungs clear to auscultation, no wheeze, rales, rhonchi. Normal insp/exp effort, no accessory muscle use Cardiovascular: RRR, no murmur, no edema Vessels: no JVD or carotid bruit Chest: normal inspection of chest Abdomen: Pitting edema on the abdomen. Nontender Musculoskeletal: Bilateral 4+ pitting edema. Skin: no rashes, warm and dry normal turgor Neurologic: PERRL, EOMI, accommodation nl, no face palsy, no dysarthria CN's II- XI intact bilaterally and moves all extremities Psychiatric: A+Ox3, euthymic affect Results & Data Results & Data Vital Signs (Past 12 Hours) Vital Signs Temp Pulse Pulse Resp BP BP Pulse Ox 01/21/25 11:12 36.8 C 44 L 18 168/80 H 95 01/21/25 10:22 47 L 01/21/25 07:27 36.6 C 48 L 18 184/71 H 92 01/21/25 03:01 36.6 C 48 L 18 177/90 H 92 O2 Del Method 01/21/25 11:12 Room Air 01/21/25 10:22 01/21/25 07:27 Room Air 01/21/25 03:01 Room Air
--- NOTE | 2025-01-21 13:58 | Pharmacy Report ---
Pharmacy Glycemic Short Note 2 - Date of Service January 21, 2025 - Glycemic Short BSG Results (Last 24 hours): 01/20/25 01/20/25 01/20/25 13:20 17:29 19:49 Glucose 86 POC Glucose 98 138 H 01/20/25 01/21/25 01/21/25 23:53 03:05 05:42 Glucose 61 L POC Glucose 109 H 77 01/21/25 01/21/25 07:28 11:14 Glucose POC Glucose 80 160 H OUTPATIENT ANTIDIABETIC REGIMEN: * Glargine 70 units SC BID + Novolog sliding scale (per med rec) * Semaglutide 2 mg SC qMon * Metformin A1c = 6.6% ASSESSMENT: * 65 yo T2DM female who presented with complaints of b/l leg swelling of the legs, weight gain and SOB with exertion. * Patient was ordered Lantus 60 units last evening (slight reduction compared to home dose of 70 units BID). Fasting BSG below goal at 80 mg/dL. Further decrease Lantus. Will change to dose per BSG scale until inpatient insulin needs are better known. * Current Novolog parameters are conservative based on home usage, however, post prandial BSG control is adequate thus far today. Suspect may need to tighten CF + CR tomorrow. Will monitor trend. PLAN FOR INPATIENT GLYCEMIC CONTROL: * Hold outpatient oral diabetes medications * Basal insulin * Lantus 0-40 units SQ BID (hold for BSG < 100, 30 units for 100-160, 40 units for BSG > 160mg/dL) * Bolus insulin * NovoLog per scale ACHS or Q6hrs while NPO * Goal Range: Low 120 mg/dL - High 140 mg/dL * Correction Factor: 30 mg/dL/unit * Nutritional / Prandial insulin per carb ratio of 1 unit per 8 grams CHO consumed
[2025-01-21] MEDS: POTASSIUM CHLORIDE CRTAB 20 MEQ TABCR PO SCH (14:52)
[2025-01-21] MEDS: FUROSEMIDE 40 MG/4 ML VIAL IV SCH (14:54)
[2025-01-22] MEDS: EMPAGLIFLOZIN 10 MG TAB PO SCH (08:17)
[2025-01-22 08:22] LABS: Anion Gap 7.0 (3-11); Blood Urea Nitrogen 23.0 mg/dl (6-23); Calcium 9.9 mg/dl (8.6-10.3); Carbon Dioxide 36.0 mmol/L (21-32); Chloride 99.0 mmol/L (98-107); Creatinine Clr Calc Pharmacy 65.9 ml/min; Glucose 107.0 mg/dl (70-99(Fasting)); Potassium 4.2 mmol/L (3.5-5.1); Sodium 142.0 mmol/L (136-145)
--- NOTE | 2025-01-22 11:17 | Hospitalist Progress Note ---
Date of Service January 22, 2025 Assessment & Plan (1) Acute decompensated heart failure: (2) Pulmonary edema: (3) Diastolic dysfunction: (4) Bradycardia, sinus: (5) Hypertensive heart disease: Plan: History of hypertensive heart disease and diastolic dysfunction Presented with increasing leg swelling and weight gain with exertional shortness of breath EKG shows sinus bradycardia Echocardiogram shows EF slightly reduced to 45 to 50% with mod concentric LVH. Neg of 6L so far Continue on Lasix 40 mg IV twice daily with electrolyte replacement Monitor intake output Add Jardiance 10 mg every day Late-night salivary cortisol added for workup for [place]'s syndrome Hypertensive urgency Amlodipine increased to 10 mg every day Enalapril increased to twice daily hydralazine 25mg tid added Sinus bradycardia - monitor for significant pause; hold atenolol Elevated troponin Mildly elevated could be secondary to hypertension; monitor for chest pain (6) Factor V deficiency: Plan: No history of DVT and/or embolism Has not been taking any medications that is anticoagulation for known history of factor V Leiden deficiency (7) Hypothyroidism: Plan: Continue home meds (8) Type II diabetes mellitus: Plan: Will hold metformin Continue with insulin and put her on sliding scale insulin coverage (9) Asthma: Plan: History of asthma Controlled now with current medications and will continue DVT prophylaxis subcu heparin CODE STATUS belt and link shop supervisor spent evaluating patient, direct bedside care, chart review, placing orders, interpretation of diagnostic studies, discussion with consultants, patient, and family members, as well as other required patient management activities is 50 minutes please note the above document was generated using voice recognition software. It may contain grammatical, syntax or spelling errors. Any formal questions or concerns about the content, text or information contained within the body of this dictation should be directly addressed to the provider for clarification Admission and Anticipated Discharge Date Admission Date: January 20, 2025 Subjective Patient seen and examined at bedside. she reports that she is feeling much better. Bilateral pitting edema has slightly improved. Denies any shortness of breath Review of Systems Review of Systems: All systems reviewed & are unremarkable except as noted in Subjective Physical Exam Physical Exam: Constitutional: Alert oriented x 3; not in distress. Respiratory: normal respiratory effort, lungs clear to auscultation, no wheeze, rales, rhonchi. Normal insp/exp effort, no accessory muscle use Cardiovascular: RRR, no murmur, no edema Vessels: no JVD or carotid bruit Chest: normal inspection of chest Abdomen: Pitting edema on the abdomen. Nontender Musculoskeletal: Bilateral 4+ pitting edema. Skin: no rashes, warm and dry normal turgor Neurologic: PERRL, EOMI, accommodation nl, no face palsy, no dysarthria CN's II- XI intact bilaterally and moves all extremities Psychiatric: A+Ox3, euthymic affect Results & Data Results & Data Vital Signs (Past 12 Hours) Vital Signs Temp Pulse Pulse Resp BP BP Pulse Ox 01/22/25 10:13 53 L 01/22/25 07:24 36.5 C 50 L 19 187/72 H 94 01/22/25 04:54 36.8 C 51 L 170/83 H 93 01/22/25 01:36 O2 Del Method 01/22/25 10:13 01/22/25 07:24 Room Air 01/22/25 04:54 Room Air 01/22/25 01:36 Room Air
--- NOTE | 2025-01-22 11:20 | Cardiology Progress Note ---
Date of Service January 22, 2025 Assessment & Plan (1) Acute decompensated heart failure: (2) Volume overload: (3) Elevated troponin: (4) Bradycardia, sinus: (5) Hypertensive heart disease: (6) Diastolic dysfunction: Plan 65-year-old female with longstanding hypertension, hypertensive heart disease, diastolic dysfunction, underlying asthmatic lung disease, type 2 diabetes mellitus, and factor V Leiden mutation admitted to [facility] with evidence of acute decompensated heart failure, marked sinus bradycardia, uncontrolled hypertension. Troponin minimally elevated, without acute ST segment change on EKG, and without overt angina symptoms. 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 Cal Esparza MD Admission and Anticipated Discharge Date Admission Date: January 20, 2025 Subjective Patient reports that she is feeling much better with diuresis Review of Systems Review of Systems: Complete Review of Systems is as stated above, negative, or noncontributory. Physical Exam Physical Exam: GEN: AAOx3; NAD; Cuschinoid appearance HEENT: No JVD CV: RRR; S1+S2; no M/R/G PULM: CTA b/l; no W/R/R ABD: soft; NTND; obese EXT: 2+ Lower extremity edema Results & Data Vital Signs (Past 12 Hours) Vital Signs Temp Pulse Pulse Resp BP BP Pulse Ox 01/22/25 10:13 53 L 01/22/25 07:24 36.5 C 50 L 19 187/72 H 94 01/22/25 04:54 36.8 C 51 L 170/83 H 93 01/22/25 01:36 O2 Del Method 01/22/25 10:13 01/22/25 07:24 Room Air 01/22/25 04:54 Room Air 01/22/25 01:36 Room Air Results Complete Blood Count Results: RBC 4.15 M/uL (4.20-5.40) L 01/21/25 WBC 8.67 K/ul (4.8-10.8) 01/21/25 Hgb 12.8 g/dl (12.0-16.0) 01/21/25 Hct 38.8 % (37.0-47.0) 01/21/25 Plt Count 167 K/uL (130-400) 01/21/25 Results BMP Results: Sodium 142 mmol/L (136-145) 01/22/25 Potassium 4.2 mmol/L (3.5-5.1) 01/22/25 Chloride 99 mmol/L (98-107) 01/22/25 Carbon Dioxide 36 mmol/L (21-32) H 01/22/25 Anion Gap 7 (3-11) 01/22/25 BUN 23 mg/dl (6-23) 01/22/25 Creatinine 1.14 mg/dl (0.6-1.2) 01/22/25 Glucose 107 mg/dl (70-99(Fasting)) H 01/22/25 Results Cardiology Web EHR Widget: Cardiology Consultation 01/20/25 14:36 Cardiology Progress Note 01/21/25 13:28 Electrocardiogram 01/20/25 13:18 Echocardiogram 01/20/25 16:00 Troponin I High Sens 24.0 pg/ml (0-14) H 01/20/25 20:56 B-Natriuretic Peptide 211 pg/ml (0-100) H 01/20/25 13:20 APTT 27 Seconds (21-31) 01/20/25 13:20 PT 11.3 Seconds (9.0-12.0) 01/20/25 13:20 INR 1.0 (0.9-1.1) 01/20/25 13:20 Sodium 142 mmol/L (136-145) 01/22/25 07:41 Potassium 4.2 mmol/L (3.5-5.1) 01/22/25 07:41 BUN 23 mg/dl (6-23) 01/22/25 07:41 Creatinine 1.14 mg/dl (0.6-1.2) 01/22/25 07:41 Glucose 107 mg/dl (70-99(Fasting)) H 01/22/25 07:41 Hemoglobin A1c 6.6 % (4.5-5.6) H 01/21/25 05:42 Magnesium 1.7 mg/dl (1.7-2.4) 01/21/25 05:42 AST 42 U/L (13-39) H 01/20/25 13:20 ALT 56 U/L (7-52) H 01/20/25 13:20 WBC 8.67 K/ul (4.8-10.8) 01/21/25 05:42 Hgb 12.8 g/dl (12.0-16.0) 01/21/25 05:42 Plt Count 167 K/uL (130-400) 01/21/25 05:42 PG Care Time/CCT Total # of Minutes Spent Total Time Spent with Patient: Total time spent is greater than 50% in coordination of care (as documented) at patient's floor/unit and/or counseling patient: Coding [place] [address] SUB INP/OBS CARE 3/50MIN Patient Type Established History Comprehensive Exam Comprehensive Medical Decision Making High Complexity Diagnoses Acute decompensated heart failure I50.9 Volume overload E87.70 Elevated troponin R79.89 Bradycardia, sinus R00.1 Hypertensive heart disease I11.9 Diastolic dysfunction I51.89 Time Spent (min) 50 Updated Medication List Medication Instructions Recorded Confirmed Type amlodipine 2.5 mg tablet (Norvasc) 2.5 mg PO QA 04/20/19 01/20/25 History aspirin 81 mg tablet,delayed 81 mg PO QA 04/20/19 01/20/25 History release (Enteric Coated Aspirin) atenolol 50 mg tablet 50 mg PO QAM 04/20/19 01/20/25 History cholecalciferol (vitamin D3) 50 2,000 units PO QAM 04/20/19 01/20/25 History mcg (2,000 unit) capsule fexofenadine 180 mg tablet 180 mg PO QAM 04/20/19 01/20/25 History (Jessica Allergy) fluticasone propionate 50 2 sprays intranasal QA 04/20/19 01/20/25 History mcg/actuation nasal spray,suspension (Flonase Allergy Relief) indapamide 2.5 mg tablet 5 mg PO QAM 04/20/19 01/20/25 History insulin aspart U-100 100 unit/mL 0 sliding scale dose subcut 04/20/19 01/20/25 History subcutaneous cartridge (Novolog USEASDIRECTD PenFill U-100 Insulin aspart) insulin glargine 100 unit/mL 70 units subcut AMPM 04/20/19 01/20/25 History subcutaneous solution (Lantus U-100 Insulin) montelukast 10 mg tablet 10 mg PO QAM 04/20/19 01/20/25 History (Singulair) multivitamin 1 tab PO QAM 04/20/19 01/20/25 History potassium chloride 10 mEq 10 meq PO QAM 04/20/19 01/20/25 History capsule,extended release acetaminophen 650 mg 1,300 mg PO QAM 01/20/25 01/20/25 History tablet,extended release albuterol sulfate 90 mcg/actuation 2 puff inhalation Q4H PRN Wheezing 01/20/25 01/20/25 History aerosol inhaler atorvastatin 40 mg tablet 40 mg PO QAM 01/20/25 01/20/25 History benazepril 20 mg tablet 40 mg PO QAM 01/20/25 01/20/25 History gabapentin 100 mg capsule 200 mg PO QPM 01/20/25 01/20/25 History gabapentin 100 mg capsule 300 mg PO QAM 01/20/25 01/20/25 History levothyroxine 200 mcg tablet 200 mcg PO DAILYBB 01/20/25 01/20/25 History melatonin 2.5 mg chewable tablet 5 mg PO HS 01/20/25 01/20/25 History metformin 500 mg tablet,extended 2,000 mg PO QAM 01/20/25 01/20/25 History release 24 hr omeprazole 40 mg capsule,delayed 40 mg PO QAM 01/20/25 01/20/25 History release semaglutide 2 mg/dose (8 mg/3 mL) 2 mg subcut WK 01/20/25 01/20/25 History subcutaneous pen injector (Ozempic) triamcinolone acetonide 0.1 % 1 applic topical BID PRN Skin 01/20/25 01/20/25 History topical cream Irritation Meds Home Medications and Allergies Home Medications Medication Instructions Recorded Confirmed Type amlodipine 2.5 mg tablet (Norvasc) 2.5 mg PO QAM 04/20/19 01/20/25 History aspirin 81 mg tablet,delayed 81 mg PO QAM 04/20/19 01/20/25 History release (Enteric Coated Aspirin) atenolol 50 mg tablet 50 mg PO QAM 04/20/19 01/20/25 History cholecalciferol (vitamin D3) 50 2,000 units PO QAM 04/20/19 01/20/25 History mcg (2,000 unit) capsule fexofenadine 180 mg tablet 180 mg PO QAM 04/20/19 01/20/25 History (Jessica Allergy) fluticasone propionate 50 2 sprays intranasal QAM 04/20/19 01/20/25 History mcg/actuation nasal spray,suspension (Flonase Allergy Relief) indapamide 2.5 mg tablet 5 mg PO QAM 04/20/19 01/20/25 History insulin aspart U-100 100 unit/mL 0 sliding scale dose subcut 04/20/19 01/20/25 History subcutaneous cartridge (Novolog USEASDIRECTD PenFill U-100 Insulin aspart) insulin glargine 100 unit/mL 70 units subcut AMP 04/20/19 01/20/25 History subcutaneous solution (Lantus U-100 Insulin) montelukast 10 mg tablet 10 mg PO QAM 04/20/19 01/20/25 History (Singulair) multivitamin 1 tab PO QAM 04/20/19 01/20/25 History potassium chloride 10 mEq 10 meq PO QAM 04/20/19 01/20/25 History capsule,extended release acetaminophen 650 mg 1,300 mg PO QAM 01/20/25 01/20/25 History tablet,extended release albuterol sulfate 90 mcg/actuation 2 puff inhalation Q4H PRN Wheezing 01/20/25 01/20/25 History aerosol inhaler atorvastatin 40 mg tablet 40 mg PO QAM 01/20/25 01/20/25 History benazepril 20 mg tablet 40 mg PO QAM 01/20/25 01/20/25 History gabapentin 100 mg capsule 200 mg PO QPM 01/20/25 01/20/25 History gabapentin 100 mg capsule 300 mg PO QAM 01/20/25 01/20/25 History levothyroxine 200 mcg tablet 200 mcg PO DAILYBB 01/20/25 01/20/25 History melatonin 2.5 mg chewable tablet 5 mg PO HS 01/20/25 01/20/25 History metformin 500 mg tablet,extended 2,000 mg PO QAM 01/20/25 01/20/25 History release 24 hr omeprazole 40 mg capsule,delayed 40 mg PO QAM 01/20/25 01/20/25 History release semaglutide 2 mg/dose (8 mg/3 mL) 2 mg subcut WK 01/20/25 01/20/25 History subcutaneous pen injector (Ozempic) triamcinolone acetonide 0.1 % 1 applic topical BID PRN Skin 01/20/25 01/20/25 History topical cream Irritation Allergies Allergy/AdvReac Type Severity Reaction Status Date / Time coconut Allergy Intermediate Hives Verified 01/20/25 17:06 Sulfa (Sulfonamide Allergy Unknown HIVES Verified 01/20/25 17:06 Antibiotics) azithromycin AdvReac Severe Diarrhea Verified 01/20/25 17:06
[2025-01-22] MEDS: SPIRONOLACTONE 25 MG TAB PO SCH (12:27)
--- NOTE | 2025-01-22 13:41 | Pharmacy Report ---
Pharmacy Glycemic Short Note 2 - Date of Service January 22, 2025 - Glycemic Short BSG Results (Last 24 hours): 01/21/25 01/21/25 01/22/25 16:07 20:03 07:23 Glucose POC Glucose 110 H 134 H 102 H 01/22/25 01/22/25 07:41 10:54 Glucose 107 H POC Glucose 184 H OUTPATIENT ANTIDIABETIC REGIMEN: * Glargine 70 units SC BID + Novolog sliding scale (per med rec) * Semaglutide 2 mg SC qMon * Metformin A1c = 6.6% ASSESSMENT: 01/22 * Nikky received 87 units of insulin yesterday (70 units basal + 17 units bolus) * Fasting BSG improved, 102 mg/dL. Patient appears to be tolerating reduced doses of basal insulin well. * Current regimen is mostly basal insulin. Will tighten Novolog parameters in attempt to re-distribute insulin regimen. 01/21 * 65 yo T2DM female who presented with complaints of b/l leg swelling of the legs, weight gain and SOB with exertion. * Patient was ordered Lantus 60 units last evening (slight reduction compared to home dose of 70 units BID). Fasting BSG below goal at 80 mg/dL. Further decrease Lantus. Will change to dose per BSG scale until inpatient insulin needs are better known. * Current Novolog parameters are conservative based on home usage, however, post prandial BSG control is adequate thus far today. Suspect may need to tighten CF + CR tomorrow. Will monitor trend. PLAN FOR INPATIENT GLYCEMIC CONTROL: * Hold outpatient oral diabetes medications * Basal insulin * Lantus 0-30 units SQ BID (hold for BSG < 100, 25 units for 100-160, 30 units for BSG > 160mg/dL) * Bolus insulin * NovoLog per scale ACHS or Q6hrs while NPO * Goal Range: Low 120 mg/dL - High 140 mg/dL * Correction Factor: 30 mg/dL/unit * Nutritional / Prandial insulin per carb ratio of 1 unit per 8 grams CHO consumed
[2025-01-22] MEDS: ACETAMINOPHEN 325 MG TAB PO PRN (21:48)
[2025-01-23 07:04] LABS: Hematocrit (blood only) 44.0 % (37.0-47.0); Hemoglobin 15.2 g/dl (12.0-16.0); Immature Granulocytes # (auto) 0.06 K/uL (0.01-0.20); Immature Granulocytes % (auto) 0.7 %; Mean Corpuscular Hemoglobin 31.9 pg (25.0-34.0); Mean Corpuscular Volume 92.2 fL (80.0-100.0); Platelet Count 204 K/uL (130-400); RDW Standard Deviation 47.7 fL (36.4-46.3); Red Blood Count 4.77 M/uL (4.20-5.40); White Blood Count 9.20 K/ul (4.8-10.8)
[2025-01-23 07:23] LABS: Anion Gap 8.0 (3-11); Blood Urea Nitrogen 25.0 mg/dl (6-23); Calcium 9.7 mg/dl (8.6-10.3); Carbon Dioxide 32.0 mmol/L (21-32); Chloride 100.0 mmol/L (98-107); Creatinine Clr Calc Pharmacy 58.3 ml/min; Glucose 154.0 mg/dl (70-99(Fasting)); Potassium 4.2 mmol/L (3.5-5.1); Sodium 140.0 mmol/L (136-145)
--- NOTE | 2025-01-23 10:17 | Hospitalist Progress Note ---
Date of Service January 23, 2025 Assessment & Plan (1) Acute decompensated heart failure: (2) Pulmonary edema: (3) Diastolic dysfunction: (4) Bradycardia, sinus: (5) Hypertensive heart disease: Plan: History of hypertensive heart disease and diastolic dysfunction Presented with increasing leg swelling and weight gain with exertional shortness of breath EKG shows sinus bradycardia Echocardiogram shows EF slightly reduced to 45 to 50% with mod concentric LVH. 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 Hypertensive urgency Amlodipine increased to 10 mg every day Enalapril increased to twice daily hydralazine 25mg tid added Sinus bradycardia - monitor for significant pause; hold atenolol Elevated troponin Mildly elevated could be secondary to hypertension; monitor for chest pain (6) Factor V deficiency: Plan: No history of DVT and/or embolism Has not been taking any medications that is anticoagulation for known history of factor V Leiden deficiency (7) Hypothyroidism: Plan: Continue home meds (8) Type II diabetes mellitus: Plan: Will hold metformin Continue with insulin and put her on sliding scale insulin coverage (9) Asthma: Plan: History of asthma Controlled now with current medications and will continue DVT prophylaxis subcu heparin 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 It may contain grammatical, syntax or spelling errors. Any formal questions or concerns about the content, text or information contained within the body of this dictation should be directly addressed to the provider for clarification Admission and Anticipated Discharge Date Admission Date: January 20, 2025 Subjective Patient continues to report improvement in shortness of breath and lower extremity edema. She is -9 L since admission Review of Systems Review of Systems: All systems reviewed & are unremarkable except as noted in Subjective Physical Exam Physical Exam: Constitutional: Alert oriented x 3; not in distress. Respiratory: normal respiratory effort, lungs clear to auscultation, no wheeze, rales, rhonchi. Normal insp/exp effort, no accessory muscle use Cardiovascular: RRR, no murmur, no edema Vessels: no JVD or carotid bruit Chest: normal inspection of chest Abdomen: Pitting edema on the abdomen. Nontender Musculoskeletal: Bilateral 2+ pitting edema; improving Skin: no rashes, warm and dry normal turgor Neurologic: PERRL, EOMI, accommodation nl, no face palsy, no dysarthria CN's II- XI intact bilaterally and moves all extremities Psychiatric: A+Ox3, euthymic affect Results & Data Results & Data Vital Signs (Past 12 Hours) Vital Signs Temp Pulse Pulse Resp BP BP Pulse Ox 01/23/25 08:40 57 L 01/23/25 07:00 36.7 C 52 L 18 146/71 H 92 01/23/25 03:21 36.7 C 60 20 131/73 95 01/22/25 22:56 36.5 C 58 L 20 148/73 H 94 O2 Del Method 01/23/25 08:40 01/23/25 07:00 Room Air 01/23/25 03:21 Room Air 01/22/25 22:56 Room Air
--- NOTE | 2025-01-23 11:24 | Cardiology Progress Note ---
Date of Service January 23, 2025 Assessment & Plan (1) Acute decompensated heart failure: (2) Volume overload: (3) Elevated troponin: (4) Bradycardia, sinus: (5) Hypertensive heart disease: (6) Diastolic dysfunction: Plan 65-year-old female with longstanding hypertension, hypertensive heart disease, diastolic dysfunction, underlying asthmatic lung disease, type 2 diabetes mellitus, and factor V Leiden mutation admitted to [facility] with evidence of acute decompensated heart failure, marked sinus bradycardia, uncontrolled hypertension. Troponin minimally elevated, without acute ST segment change on EKG, and without overt angina symptoms. 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 Cal Esparza MD Admission and Anticipated Discharge Date Admission Date: January 20, 2025 Subjective Improving LE edema No Chest pain; no N/V/CUI; afebrile. No PND or orthopnea. Review of Systems Review of Systems: Complete Review of Systems is as stated above, negative, or noncontributory. Physical Exam Physical Exam: GEN: AAOx3; NAD; Cuschinoid appearance HEENT: No JVD CV: RRR; S1+S2; no M/R/G PULM: CTA b/l; no W/R/R ABD: soft; NTND; obese EXT: 1+ Lower extremity edema Results & Data Vital Signs (Past 12 Hours) Vital Signs Temp Pulse Pulse Resp BP BP Pulse Ox 01/23/25 08:40 57 L 01/23/25 07:00 36.7 C 52 L 18 146/71 H 92 01/23/25 03:21 36.7 C 60 20 131/73 95 O2 Del Method 01/23/25 08:40 01/23/25 07:00 Room Air 01/23/25 03:21 Room Air Results BMP Results: Sodium 140 mmol/L (136-145) 01/23/25 Potassium 4.2 mmol/L (3.5-5.1) 01/23/25 Chloride 100 mmol/L (98-107) 01/23/25 Carbon Dioxide 32 mmol/L (21-32) 01/23/25 Anion Gap 8 (3-11) 01/23/25 BUN 25 mg/dl (6-23) H 01/23/25 Creatinine 1.27 mg/dl (0.6-1.2) H 01/23/25 Glucose 154 mg/dl (70-99(Fasting)) H 01/23/25 Results CBC w Diff Results: RBC 4.77 M/uL (4.20-5.40) 01/23/25 WBC 9.20 K/ul (4.8-10.8) 01/23/25 Hgb 15.2 g/dl (12.0-16.0) 01/23/25 Hct 44.0 % (37.0-47.0) 01/23/25 MCV 92.2 fL (80.0-100.0) 01/23/25 MCH 31.9 pg (25.0-34.0) 01/23/25 MCHC 34.5 g/dL (32.0-36.0) 01/23/25 RDW Standard Deviation 47.7 fL (36.4-46.3) H 01/23/25 RDW Coefficient of Variation 14.0 % (11.5-14.5) 01/23/25 Plt Count 204 K/uL (130-400) 01/23/25 MPV 10.8 fL (9.4-12.4) 01/23/25 Neutrophils (%) (Auto) 63.3 % 01/23/25 Lymphocytes (%) (Auto) 23.7 % 01/23/25 Monocytes # (Auto) 0.82 K/uL (0.11-0.59) H 01/23/25 Eosinophils # (Auto) 0.28 K/uL (0.00-0.50) 01/23/25 Immature Granulocyte % (Auto) 0.7 % 01/23/25 Neutrophils # (Auto) 5.82 K/uL (1.40-6.50) 01/23/25 Lymphocytes # (Auto) 2.18 K/uL (1.20-3.40) 01/23/25 Monocytes # (Auto) 0.82 K/uL (0.11-0.59) H 01/23/25 Eosinophils # (Auto) 0.28 K/uL (0.00-0.50) 01/23/25 Basophils # (Auto) 0.04 K/uL (0.00-0.20) 01/23/25 Immature Granulocyte # (Auto) 0.06 K/uL (0.01-0.20) 5 PG Care Time/CCT Total # of Minutes Spent Total Time Spent with Patient: Total time spent is greater than 50% in coordination of care (as documented) at patient's floor/unit and/or counseling patient: C[place] [address] SUB INP/OBS CARE 3/50MIN Patient Type Established History Comprehensive Exam Comprehensive Medical Decision Making High Complexity Diagnoses Acute decompensated heart failure I50.9 Volume overload E87.70 Elevated troponin R79.89 Bradycardia, sinus R00.1 Hypertensive heart disease I11.9 Diastolic dysfunction I51.89 Time Spent (min) 50 Meds Home Medications and Allergies Home Medications Medication Instructions Recorded Confirmed Type amlodipine 2.5 mg tablet (Norvasc) 2.5 mg PO QA 04/20/19 01/20/25 History aspirin 81 mg tablet,delayed 81 mg PO QA 04/20/19 01/20/25 History release (Enteric Coated Aspirin) atenolol 50 mg tablet 50 mg PO QAM 04/20/19 01/20/25 History cholecalciferol (vitamin D3) 50 2,000 units PO QAM 04/20/19 01/20/25 History mcg (2,000 unit) capsule fexofenadine 180 mg tablet 180 mg PO QA 04/20/19 01/20/25 History (Jessica Allergy) fluticasone propionate 50 2 sprays intranasal QA 04/20/19 01/20/25 History mcg/actuation nasal spray,suspension (Flonase Allergy Relief) indapamide 2.5 mg tablet 5 mg PO QA 04/20/19 01/20/25 History insulin aspart U-100 100 unit/mL 0 sliding scale dose subcut 04/20/19 01/20/25 History subcutaneous cartridge (Novolog USEASDIRECTD PenFill U-100 Insulin aspart) insulin glargine 100 unit/mL 70 units subcut AMP 04/20/19 01/20/25 History subcutaneous solution (Lantus U-100 Insulin) montelukast 10 mg tablet 10 mg PO QAM 04/20/19 01/20/25 History (Singulair) multivitamin 1 tab PO QAM 04/20/19 01/20/25 History potassium chloride 10 mEq 10 meq PO QAM 04/20/19 01/20/25 History capsule,extended release acetaminophen 650 mg 1,300 mg PO QAM 01/20/25 01/20/25 History tablet,extended release albuterol sulfate 90 mcg/actuation 2 puff inhalation Q4H PRN Wheezing 01/20/25 01/20/25 History aerosol inhaler atorvastatin 40 mg tablet 40 mg PO QAM 01/20/25 01/20/25 History benazepril 20 mg tablet 40 mg PO QAM 01/20/25 01/20/25 History gabapentin 100 mg capsule 200 mg PO QPM 01/20/25 01/20/25 History gabapentin 100 mg capsule 300 mg PO QAM 01/20/25 01/20/25 History levothyroxine 200 mcg tablet 200 mcg PO DAILYBB 01/20/25 01/20/25 History melatonin 2.5 mg chewable tablet 5 mg PO HS 01/20/25 01/20/25 History metformin 500 mg tablet,extended 2,000 mg PO QAM 01/20/25 01/20/25 History release 24 hr omeprazole 40 mg capsule,delayed 40 mg PO QAM 01/20/25 01/20/25 History release semaglutide 2 mg/dose (8 mg/3 mL) 2 mg subcut WK 01/20/25 01/20/25 History subcutaneous pen injector (Ozempic) triamcinolone acetonide 0.1 % 1 applic topical BID PRN Skin 01/20/25 01/20/25 History topical cream Irritation Allergies Allergy/AdvReac Type Severity Reaction Status Date / Time coconut Allergy Intermediate Hives Verified 01/20/25 17:06 Sulfa (Sulfonamide Allergy Unknown HIVES Verified 01/20/25 17:06 Antibiotics) azithromycin AdvReac Severe Diarrhea Verified 01/20/25 17:06
[2025-01-24 07:48] LABS: Anion Gap 8.0 (3-11); Blood Urea Nitrogen 30.0 mg/dl (6-23); Calcium 9.5 mg/dl (8.6-10.3); Carbon Dioxide 31.0 mmol/L (21-32); Chloride 101.0 mmol/L (98-107); Creatinine Clr Calc Pharmacy 50.7 ml/min; Glucose 189.0 mg/dl (70-99(Fasting)); Potassium 4.7 mmol/L (3.5-5.1); Sodium 140.0 mmol/L (136-145)
--- NOTE | 2025-01-24 09:06 | Pharmacy Report ---
Pharmacy Glycemic Short Note 2 - Date of Service January 24, 2025 - Glycemic Short BSG Results (Last 24 hours): 01/23/25 01/23/25 01/23/25 11:02 16:15 20:10 Glucose POC Glucose 191 H 158 H 204 H 01/24/25 01/24/25 06:54 07:17 Glucose 189 H POC Glucose 184 H OUTPATIENT ANTIDIABETIC REGIMEN: * Glargine 70 units SC BID + Novolog sliding scale (per med rec) * Semaglutide 2 mg SC qMon * Metformin A1c = 6.6% ASSESSMENT: 01/24 * Nikky received 102 units of insulin yesterday (65 units basal + 37 units bolus) * Basal dose increased yesterday and CF/CR tightened, will continue with this dosing for another day, blood sugars acceptable/just above goal. 01/22 * Nikky received 87 units of insulin yesterday (70 units basal + 17 units bolus) * Fasting BSG improved, 102 mg/dL. Patient appears to be tolerating reduced doses of basal insulin well. * Current regimen is mostly basal insulin. Will tighten Novolog parameters in attempt to re-distribute insulin regimen. 01/21 * 65 yo T2DM female who presented with complaints of b/l leg swelling of the legs, weight gain and SOB with exertion. * Patient was ordered Lantus 60 units last evening (slight reduction compared to home dose of 70 units BID). Fasting BSG below goal at 80 mg/dL. Further decrease Lantus. Will change to dose per BSG scale until inpatient insulin needs are better known. * Current Novolog parameters are conservative based on home usage, however, post prandial BSG control is adequate thus far today. Suspect may need to tighten CF + CR tomorrow. Will monitor trend. PLAN FOR INPATIENT GLYCEMIC CONTROL: * Hold outpatient diabetes medications * Basal insulin * Lantus 20-35 units SQ BID (20 units for BSG < 100, 30 units for 100-160, 35 units for BSG > 160mg/dL) * Bolus insulin * NovoLog per scale ACHS or Q6hrs while NPO * Goal Range: Low 120 mg/dL - High 140 mg/dL * Correction Factor: 20 mg/dL/unit * Nutritional / Prandial insulin per carb ratio of 1 unit per 6 grams CHO consumed
--- NOTE | 2025-01-24 10:52 | Hospitalist Progress Note ---
Date of Service January 24, 2025 Assessment & Plan (1) Acute decompensated heart failure: (2) Pulmonary edema: (3) Diastolic dysfunction: (4) Bradycardia, sinus: (5) Hypertensive heart disease: Plan: History of hypertensive heart disease and diastolic dysfunction Presented with increasing leg swelling and weight gain with exertional shortness of breath EKG shows sinus bradycardia Echocardiogram shows EF slightly reduced to 45 to 50% with mod concentric LVH. 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 Hypertensive urgency Amlodipine increased to 10 mg every day Enalapril increased to twice daily hydralazine 25mg tid added Sinus bradycardia - monitor for significant pause; hold atenolol Elevated troponin Mildly elevated could be secondary to hypertension; monitor for chest pain (6) Factor V deficiency: Plan: No history of DVT and/or embolism Has not been taking any medications that is anticoagulation for known history of factor V Leiden deficiency (7) Hypothyroidism: Plan: Continue home meds (8) Type II diabetes mellitus: Plan: Will hold metformin Continue with insulin and put her on sliding scale insulin coverage Reports nocturnal hypoglycemia at home; will modify her regimen at discharge depending on blood glucose and insulin requirement during the hospitalization. 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 It may contain grammatical, syntax or spelling errors. Any formal questions or concerns about the content, text or information contained within the body of this dictation should be directly addressed to the provider for clarification Admission and Anticipated Discharge Date Admission Date: January 20, 2025 Subjective Patient continues to have good diuresis with -11.9 L so far Reports that she is feeling much better compared to on admission No significant events overnight Review of Systems Review of Systems: All systems reviewed & are unremarkable except as noted in Subjective Physical Exam Physical Exam: Constitutional: Alert oriented x 3; not in distress. Respiratory: normal respiratory effort, lungs clear to auscultation, no wheeze, rales, rhonchi. Normal insp/exp effort, no accessory muscle use Cardiovascular: RRR, no murmur, no edema Vessels: no JVD or carotid bruit Chest: normal inspection of chest Abdomen: Pitting edema on the abdomen. Nontender Musculoskeletal: Bilateral 2+ pitting edema; improving Skin: no rashes, warm and dry normal turgor Neurologic: PERRL, EOMI, accommodation nl, no face palsy, no dysarthria CN's II- XI intact bilaterally and moves all extremities Psychiatric: A+Ox3, euthymic affect Results & Data Results & Data Vital Signs (Past 12 Hours) Vital Signs Temp Pulse Pulse Resp BP BP Pulse Ox 01/24/25 07:24 36.4 C L 64 18 148/79 H 95 01/24/25 07:21 67 01/24/25 03:37 36.7 C 69 18 111/67 94 01/24/25 03:23 36.6 C 62 18 145/69 H 93 01/23/25 23:24 36.6 C 95 H 18 127/64 96 01/23/25 22:59 62 O2 Del Method 01/24/25 07:24 Room Air 01/24/25 07:21 01/24/25 03:37 Room Air 01/24/25 03:23 Room Air 01/23/25 23:24 Room Air 01/23/25 22:59
--- NOTE | 2025-01-24 13:43 | Cardiology Progress Note ---
Date of Service January 24, 2025 Assessment & Plan (1) Acute decompensated heart failure: (2) Volume overload: (3) Elevated troponin: (4) Bradycardia, sinus: (5) Hypertensive heart disease: (6) Diastolic dysfunction: Plan Assessment: 65-year-old female with longstanding hypertension, hypertensive heart disease, diastolic dysfunction, underlying asthmatic lung disease, type 2 diabetes mellitus, and factor V Leiden mutation admitted to [facility] with evidence of acute decompensated heart failure, marked sinus bradycardia, uncontrolled hypertension. Troponin minimally elevated, without acute ST segment change on EKG, and without overt angina symptoms. Plan: -patient continues to diurese well, continue Lasix 40mg IV BID, -2195ml fluid deficit -BP controlled, Continue Amlodipine, Enalapril, Hydralazine and Aldactone -Continue Jardiance for diabetes management as well as part of HF regimen -Strict I&O and daily weights with standing scale -Close monitoring of renal function and serum electrolytes with Goal serum K> 4.0 and serum mag > 2.0 -CHF teaching -2000mg or less sodium restriction diet. -Echocardiogram shows borderline hypokinesis of the LV with subtle hypokinesis of the posterior base. Mild reduction in LVEF 45-50%. Patient's EKG demonstrates bradycardia and IVCD, but no evidence of heart block. Significant family history of coronary disease. Would recommend stress test as outpatient for further evaluation. patient remains chest pain free -Agree with Dr. Solorzano, that patient should have Kwaku syndrome workup at some juncture, this can be managed by primary team. Case has been discussed with Dr. Vega. Further recommendations regarding plan of care as per his assessment. I spent a total of 30 minutes on the date of service in preparation, delivery, documentation of the care provided to the patient excluding any time spent in the performance of separately billed services. PEGGY [facility] Admission and Anticipated Discharge Date Admission Date: January 20, 2025 Supervising Physician Co-Signing Physician Notes Attending attestation: Case reviewed with the advanced practitioner. I have personally performed a history and physical examination on the patient. I have reviewed the advanced practitioner's documentation on the date of service referenced in note, and I agree with, and take responsibility for the plan of care. Patient without complaints. Notes that edema is improving. Telemetry reveals n o additional bradycardia with sinus rhythm in the 60s to 70s noted with occasional PVCs. -Patient to remain off of beta-salvatore - Continue Jardiance 10 mg daily, spironolactone 25 mg daily, furosemide 40 mg IV twice daily -Continue subcutaneous heparin for DVT prophylaxis I spent a total of 20 minutes coordinating, documenting, and providing care for this patient excluding time spent in the performance of separately billed services or time spent by another provider. Diony Vega DO Subjective 01/24/2025: Patient seen and examined in follow up today. Feeling fair. Reports marked improvement in her overall swelling. she is sitting out of bed in a chair visiting with family. Denies any chest pain, pressure, palpitations, no shortness of breath, PND, pre-syncope, or syncope. Labs, vitals, diagnostics, telemetry and documentation reviewed. Telemetry reviewed showing SR with occasional PVCs rates 60-80's. No acute events overnight. Review of Systems Review of Systems: All systems reviewed & are unremarkable except as noted in HPI & below Physical Exam Constitutional: + ill appearing and + overweight; no acu te distress Neck: normal visual inspection and trachea midline Respiratory: normal respiratory effort; no respiratory distress, no labored breathing and no cough Auscultation: + diminished lung sounds (bilateral bases ); no crackles, no rales and no rhonchi Cardiovascular: Rate/Rhythm: regular rate and regular rhythm Heart Sounds: normal S1 and normal S2 Vessels: dorsalis pedis pulses present; no JVD Extremities: + edema (+ 2 BLE) Skin: no rashes, warm and dry Psychiatric: A+Ox3, euthymic affect Results & Data Vital Signs (Past 12 Hours) Vital Signs Temp Pulse Pulse Resp BP BP Pulse Ox 01/24/25 11:49 36.6 C 71 18 136/77 93 01/24/25 07:24 36.4 C L 64 18 148/79 H 95 01/24/25 07:21 67 01/24/25 03:37 36.7 C 69 18 111/67 94 01/24/25 03:23 36.6 C 62 18 145/69 H 93 O2 Del Method 01/24/25 11:49 Room Air 01/24/25 07:24 Room Air 01/24/25 07:21 01/24/25 03:37 Room Air 01/24/25 03:23 Room Air Laboratory Results Comprehensive Metabolic Panel 01/24/25 Range/Units 06:54 Sodium 140 (136-145) mmol/L Potassium 4.7 (3.5-5.1) mmol/L Chloride 101 (98-107) mmol/L Carbon Dioxide 31 (21-32) mmol/L BUN 30 H (6-23) mg/dl Creatinine 1.45 H (0.6-1.2) mg/dl Glucose 189 H (70-99(Fasting)) mg/dl Calcium 9.5 (8.6-10.3) mg/dl Intake and Output 01/23/25 01/24/25 01/24/25 22:59 06:59 14:59 Intake Total 200 / 980 300 / 980 Output Total 950 / 3375 425 / 3375 Balance -750 / -2395 -125 / -2395 Intake: Oral 200 / 980 300 / 980 Output: Urine 950 / 3375 425 / 3375 Other: Weight 115 kg Weight Measurement Method Standing Scale PG Care Time/CCT Total # of Minutes Spent Total Time Spent: 30 Total Time Spent with Patient: Total time spent is greater than 50% in coordination of care (as documented) at patient's floor/unit and/or counseling patient: Coding Level of Care Code 46820 SUB INP/OBS CARE 3/50MIN Medical Decision Making High Complexity Diagnoses Acute decompensated heart failure I50.9 Volume overload E87.70 Elevated troponin R79.89 Bradycardia, sinus R00.1 Hypertensive heart disease I11.9 Diastolic dysfunction I51.89 Time Spent (min) 50 Comment 30 minutes were spent by PEGGY Paul, 20 minutes by Dom Fleming
[2025-01-25 06:37] LABS: Anion Gap 9.0 (3-11); Blood Urea Nitrogen 34.0 mg/dl (6-23); Calcium 9.3 mg/dl (8.6-10.3); Carbon Dioxide 27.0 mmol/L (21-32); Chloride 103.0 mmol/L (98-107); Creatinine Clr Calc Pharmacy 47.7 ml/min; Glucose 193.0 mg/dl (70-99(Fasting)); Magnesium 2.2 mg/dl (1.7-2.4); Potassium 4.6 mmol/L (3.5-5.1); Sodium 139.0 mmol/L (136-145)
--- NOTE | 2025-01-25 07:21 | Pharmacy Report ---
Pharmacy Glycemic Short Note 2 - Date of Service January 25, 2025 - Glycemic Short BSG Results (Last 24 hours): 01/24/25 01/24/25 01/24/25 06:54 11:34 15:48 Glucose 189 H POC Glucose 221 H 199 H 01/24/25 01/25/25 01/25/25 20:23 05:39 07:07 Glucose 193 H POC Glucose 201 H 209 H OUTPATIENT ANTIDIABETIC REGIMEN: * Glargine 70 units SC BID + NovoLog sliding scale (per med rec) * Semaglutide 2 mg SC qMon * Metformin A1c = 6.6% ASSESSMENT: 01/25 * Nikky received 108 units of insulin yesterday (70 units basal + 38 units bolus) * Blood sugars above goal all of yesterday and fasting this AM, basal increased yesterday, continue, tighten CR at this time. * Consider lowering goal range tomorrow, patient did have lower blood sugars early in her admission (01/21) so goal range was started higher at that time, but this as not been the case the past 4 days. 01/24 * Nikky received 102 units of insulin yesterday (65 units basal + 37 units bolus) * Basal dose increased yesterday and CF/CR tightened, will continue with this dosing for another day, blood sugars acceptable/just above goal. 01/22 * Nikky received 87 units of insulin yesterday (70 units basal + 17 units bolus) * Fasting BSG improved, 102 mg/dL. Patient appears to be tolerating reduced doses of basal insulin well. * Current regimen is mostly basal insulin. Will tighten Novolog parameters in attempt to re-distribute insulin regimen. 01/21 * 65 yo T2DM female who presented with complaints of b/l leg swelling of the legs, weight gain and SOB with exertion. * Patient was ordered Lantus 60 units last evening (slight reduction compared to home dose of 70 units BID). Fasting BSG below goal at 80 mg/dL. Further decrease Lantus. Will change to dose per BSG scale until inpatient insulin needs are better known. * Current Novolog parameters are conservative based on home usage, however, post prandial BSG control is adequate thus far today. Suspect may need to tighten CF + CR tomorrow. Will monitor trend. PLAN FOR INPATIENT GLYCEMIC CONTROL: * Hold outpatient diabetes medications * Basal insulin * Lantus 20-35 units SQ BID (20 units for BSG < 100, 30 units for 100-160, 35 units for BSG > 160mg/dL) * Bolus insulin * NovoLog per scale ACHS or Q6hrs while NPO * Goal Range: Low 120 mg/dL - High 150 mg/dL * Correction Factor: 20 mg/dL/unit * Nutritional / Prandial insulin per carb ratio of 1 unit per 5 grams CHO consumed
--- NOTE | 2025-01-25 08:39 | Cardiology Progress Note ---
Date of Service January 25, 2025 Assessment & Plan (1) Acute decompensated heart failure: (2) Volume overload: (3) Elevated troponin: (4) Bradycardia, sinus: (5) Hypertensive heart disease: (6) Diastolic dysfunction: Plan Assessment: 65-year-old female with longstanding hypertension, hypertensive heart disease, diastolic dysfunction, underlying asthmatic lung disease, type 2 diabetes mellitus, and factor V Leiden mutation admitted to [facility] with evidence of acute decompensated heart failure with mildly reduced ejection fraction, marked sinus bradycardia, uncontrolled hypertension. Troponin minimally elevated, without acute ST segment change on EKG, and without overt angina symptoms. Plan: 01/24/2025: -patient continues to diurese well, continue Lasix 40mg IV BID, -2195ml fluid deficit -BP controlled, Continue Amlodipine, Enalapril, Hydralazine and Aldactone -Continue Jardiance for diabetes management as well as part of HF regimen -Strict I&O and daily weights with standing scale -Close monitoring of renal function and serum electrolytes with Goal serum K> 4.0 and serum mag > 2.0 -CHF teaching -2000mg or less sodium restriction diet. -Echocardiogram shows borderline hypokinesis of the LV with subtle hypokinesis of the posterior base. Mild reduction in LVEF 45-50%. Patient's EKG demonstrates bradycardia and IVCD, but no evidence of heart block. Significant family history of coronary disease. Would recommend stress test as outpatient for further evaluation. patient remains chest pain free -Agree with Dr. Solorzano, that patient should have Jefferson syndrome workup at some juncture, this can be managed by primary team. 01/25/2025: -Patient continues to demonstrate clinical improvement from a cardiac perspective. -Diuresing well, -12Kg weight deficit. -Continue Lasix 40mg IV BID -Continue Jardiance for diabetes management as well as part of HF regimen -Strict I&O and daily weights with standing scale -Close monitoring of renal function and serum electrolytes with Goal serum K> 4.0 and serum mag > 2.0 -CHF teaching -2000mg or less sodium restriction diet. -discussed with patient that when she is stable for discharge, she will need close cardiology follow up with our office as well as plan to pursue OP ischemic work up due to current history/symptoms, recent test results and family history. Case has been discussed with Dr. Vega. Further recommendations regarding plan of care as per his assessment. I spent a total of 30 minutes on the date of service in preparation, delivery, documentation of the care provided to the patient excluding any time spent in the performance of separately billed services. PEGGY Mccann [facility] Admission and Anticipated Discharge Date Admission Date: January 20, 2025 Supervising Physician Co-Signing Physician Notes Attending attestation: Case reviewed with the advanced practitioner. I have personally performed a history and physical examination on the patient. I have reviewed the advanced practitioner's documentation on the date of service referenced in note, and I agree with, and take responsibility for the plan of care. Question if there is some component of lymphedema based on patient's physical exam and chronic ankle edema per her description. Telemetry reveals sinus rhythm in the 60s to 70s. Denies any symptoms suggestive angina. With ventricular ejection fraction on resting echocardiogram performed 02/16/2025 mildly reduced in the range of 45 to 50% with borderline global hypokinesis of the left ventricle and several hypokinesis of the basal posterior segment. * Continue furosemide 40 mg IV twice daily today * Prior to hospital treatment atenolol has been discontinued due to presentation with marked sinus bradycardia * Prior to hospital treatment with amlodipine 2.5 mg daily has been titrated to 10 mg daily which is likely not an ideal medication given her lower extremity edema * Will hold enalapril for 36 hours prior to initiation of Entresto for blood pressure lowering effects and CHF effects. Will then attempt to wean down amlodipine treatment * Continue Jardiance 10 mg daily * Patient states her mother had received physical therapy/lymphedema therapy with [facility], and this may be a good option for patient at time of discharge * Continue spironolactone. * Hydralazine on hold for now * Supplement potassium * Continue subcutaneous heparin for DVT prophylaxis * Plan for ischemic workup as an outpatient with 2-day protocol pharmacologic nuclear stress test. Same protocol as the patient received in 2016. I will place the order in her outpatient chart.Her PCP had previously ordered an outpatient echocardiogram. This can be canceled. I spent a total of 20 minutes coordinating, documenting, and providing care for this patient excluding time spent in the performance of separately billed services or time spent by another provider. Diony Vega DO Subjective 01/25/2025: Patient seen and examined in follow up today. Feeling well from a cardiac perspective. Denies any chest pain, pressure, palpitations, pre-syncope, syncope, shortness of breath. Reports ongoing reduction in lower extremity edema Labs, vitals, diagnostics, telemetry and documentation reviewed. Telemetry reviewed showing SR with PVC's 60-70s -12Kg weight loss, -2810 ml fluid balance Review of Systems Review of Systems: All systems reviewed & are unremarkable except as noted in HPI & below Physical Exam Constitutional: + overweight; no acute distress and not ill appearing Neck: normal visual inspection and trachea midline Respiratory: normal respiratory effort; no respiratory distress, no labored breathing and no cough Auscultation: + diminished lung sounds (bilateral bases ); no crackles, no rales and no rhonchi Cardiovascular: Rate/Rhythm: regular rate and regular rhythm Heart Sounds: normal S1 and normal S2 Vessels: dorsalis pedis pulses present; no JVD Extremities: + edema (+ 2 BLE) Skin: no rashes, warm and dry Psychiatric: A+Ox3, euthymic affect Results & Data Vital Signs (Past 12 Hours) Vital Signs Temp Pulse Pulse Resp BP BP Pulse Ox 01/25/25 07:42 61 01/25/25 07:08 36.4 C L 70 18 133/81 95 01/25/25 03:16 36.6 C 62 14 131/65 93 01/24/25 23:07 36.8 C 65 16 135/69 93 01/24/25 22:34 65 O2 Del Method 01/25/25 07:42 01/25/25 07:08 Room Air 01/25/25 03:16 Room Air 01/24/25 23:07 Room Air 01/24/25 22:34 Laboratory Results Comprehensive Metabolic Panel 01/25/25 Range/Units 05:39 Sodium 139 (136-145) mmol/L Potassium 4.6 (3.5-5.1) mmol/L Chloride 103 (98-107) mmol/L Carbon Dioxide 27 (21-32) mmol/L BUN 34 H (6-23) mg/dl Creatinine 1.53 H (0.6-1.2) mg/dl Glucose 193 H (70-99(Fasting)) mg/dl Calcium 9.3 (8.6-10.3) mg/dl Intake and Output 01/24/25 01/25/25 01/25/25 22:59 06:59 14:59 Intake Total 650 / 990 100 / 990 Output Total 500 / 3550 900 / 3550 250 / 250 Balance 150 / -2560 -800 / -2560 -250 / -250 Intake: Oral 650 / 990 100 / 990 Output: Urine 500 / 3550 900 / 3550 250 / 250 Other: Weight 113.6 kg Weight Measurement Method Built in [facility] PG Care Time/CCT Total # of Minutes Spent Total Time Spent with Patient: Total time spent is greater than 50% in coordination of care (as documented) at patient's floor/unit and/or counseling patient: C[place] [address] SUB INP/OBS CARE 3/50MIN Patient Type Established History Detailed Exam Detailed Medical Decision Making High Complexity Diagnoses Acute decompensated heart failure I50.9 Volume overload E87.70 Elevated troponin R79.89 Bradycardia, sinus R00.1 Hypertensive heart disease I11.9 Diastolic dysfunction I51.89 Time Spent (min) 50 Comment 30 minutes were spent by PEGGY Paul, 20 minutes were spent by Dom Fleming
--- NOTE | 2025-01-25 13:33 | Hospitalist Progress Note ---
Date of Service January 25, 2025 Assessment & Plan (1) Acute decompensated heart failure: (2) Pulmonary edema: (3) Diastolic dysfunction: (4) Bradycardia, sinus: (5) Hypertensive heart disease: Plan: History of hypertensive heart disease and diastolic dysfunction Presented with increasing leg swelling and weight gain with exertional shortness of breath EKG shows sinus bradycardia Echocardiogram shows EF slightly reduced to 45 to 50% with mod concentric LVH. Patient diuresed with IV Lasix 40 mg twice daily with good diuresis; -15.8 L so far. Her creatinine is uptrending; will hold additional Lasix; possibly switch over to p.o. From tomorrow a.m. Add Jardiance 10 mg every day Late-night salivary cortisol added for workup for [place]'s syndrome-pending Hypertensive urgency Amlodipine increased to 10 mg every day Enalapril increased to twice daily Sinus bradycardia - monitor for significant pause; hold atenolol Elevated troponin Mildly elevated could be secondary to hypertension; monitor for chest pain (6) Factor V deficiency: Plan: No history of DVT and/or embolism Has not been taking any medications that is anticoagulation for known history of factor V Leiden deficiency (7) Hypothyroidism: Plan: Continue home meds (8) Type II diabetes mellitus: Plan: Will hold metformin Continue with insulin and put her on sliding scale insulin coverage Reports nocturnal hypoglycemia at home; will modify her regimen at discharge depending on blood glucose and insulin requirement during the hospitalization. (9) Asthma: Plan: History of asthma Controlled now with current medications and will continue DVT prophylaxis subcu heparin CODE STATUS radio station audio engineer spent evaluating patient, direct bedside care, chart review, placing orders, interpretation of diagnostic studies, discussion with consultants, patient, and family members, as well as other required patient management activities is 50 minutes please note the above document was generated using voice recognition software. It may contain grammatical, syntax or spelling errors. Any formal questions or concerns about the content, text or information contained within the body of this dictation should be directly addressed to the provider for clarification Admission and Anticipated Discharge Date Admission Date: January 20, 2025 Subjective Patient seen and examined at bedside. She reports that this is the lightest she has been for several years. Reports that her shortness of breath has resolved. No significant events overnight Review of Systems Review of Systems: All systems reviewed & are unremarkable except as noted in Subjective Physical Exam Physical Exam: Constitutional: Alert oriented x 3; not in distress. Respiratory: normal respiratory effort, lungs clear to auscultation, no wheeze, rales, rhonchi. Normal insp/exp effort, no accessory muscle use Cardiovascular: RRR, no murmur, no edema Vessels: no JVD or carotid bruit Chest: normal inspection of chest Abdomen: Pitting edema on the abdomen. Nontender Musculoskeletal: Bilateral 1+ pitting edema; significant improvement Skin: no rashes, warm and dry normal turgor Neurologic: PERRL, EOMI, accommodation nl, no face palsy, no dysarthria CN's II- XI intact bilaterally and moves all extremities Psychiatric: A+Ox3, euthymic affect Results & Data Results & Data Vital Signs (Past 12 Hours) Vital Signs Temp Pulse Pulse Resp BP BP Pulse Ox 01/25/25 11:01 36.6 C 70 18 117/73 96 01/25/25 07:42 61 01/25/25 07:08 36.4 C L 70 18 133/81 95 01/25/25 03:16 36.6 C 62 14 131/65 93 O2 Del Method 01/25/25 11:01 Room Air 01/25/25 07:42 01/25/25 07:08 Room Air 01/25/25 03:16 Room Air
[2025-01-26 06:57] LABS: Anion Gap 8.0 (3-11); Blood Urea Nitrogen 40.0 mg/dl (6-23); Calcium 9.4 mg/dl (8.6-10.3); Carbon Dioxide 28.0 mmol/L (21-32); Chloride 102.0 mmol/L (98-107); Creatinine Clr Calc Pharmacy 44.9 ml/min; Glucose 192.0 mg/dl (70-99(Fasting)); Potassium 4.8 mmol/L (3.5-5.1); Sodium 138.0 mmol/L (136-145)
--- NOTE | 2025-01-26 12:58 | Cardiology Progress Note ---
Date of Service January 26, 2025 Assessment & Plan (1) Acute decompensated heart failure: (2) Volume overload: (3) Elevated troponin: (4) Bradycardia, sinus: (5) Hypertensive heart disease: (6) Diastolic dysfunction: Plan Assessment: 65-year-old female with longstanding hypertension, hypertensive heart disease, diastolic dysfunction, underlying asthmatic lung disease, type 2 diabetes mellitus, and factor V Leiden mutation admitted to [facility] with evidence of acute decompensated heart failure with mildly reduced ejection fraction, marked sinus bradycardia, uncontrolled hypertension. Troponin minimally elevated, without acute ST segment change on EKG, and without overt angina symptoms. Plan: 01/24/2025: -patient continues to diurese well, continue Lasix 40mg IV BID, -2195ml fluid deficit -BP controlled, Continue Amlodipine, Enalapril, Hydralazine and Aldactone -Continue Jardiance for diabetes management as well as part of HF regimen -Strict I&O and daily weights with standing scale -Close monitoring of renal function and serum electrolytes with Goal serum K> 4.0 and serum mag > 2.0 -CHF teaching -2000mg or less sodium restriction diet. -Echocardiogram shows borderline hypokinesis of the LV with subtle hypokinesis of the posterior base. Mild reduction in LVEF 45-50%. Patient's EKG demonstrates bradycardia and IVCD, but no evidence of heart block. Significant family history of coronary disease. Would recommend stress test as outpatient for further evaluation. patient remains chest pain free -Agree with Dr. Solorzano, that patient should have [place] syndrome workup at some juncture, this can be managed by primary team. 01/25/2025: -Patient continues to demonstrate clinical improvement from a cardiac perspective. -Diuresing well, -12Kg weight deficit. -Continue Lasix 40mg IV BID -Continue Jardiance for diabetes management as well as part of HF regimen -Strict I&O and daily weights with standing scale -Close monitoring of renal function and serum electrolytes with Goal serum K> 4.0 and serum mag > 2.0 -CHF teaching -2000mg or less sodium restriction diet. -discussed with patient that when she is stable for discharge, she will need close cardiology follow up with our office as well as plan to pursue OP ischemic work up due to current history/symptoms, recent test results and family history. 01/26/2025: -patient continues to show clinical improvement from a cardiac perspective. -Diuresing well -1365ml fluid balance. IV lasix placed on hold. discontinue in lieu of transitioning to Lasix 40mg PO Daily starting tomorrow. Serum K 4.8. Stop potassium supplementation. -Continue Aspirin 81mg, Atorvastatin 20mg daily. -Will avoid beta blockers at this time due to bradycardia on admission. -Continue jardiance for DM and as part of HF regimen. -Continue Spironolactone and Hydralazine. -Strict I&O and daily weights. close monitoring of renal function and electrolytes. Low sodium diet. -CHF teaching. -Recommend OP lymphedema/management evaluation -Patient will need follow up with Cardiology to establish care as well as a nuclear stress test for further evaluation of mild decline in LVEF in conjunction with multiple risk factors. -recommend OP labs (BMP) in one to two weeks Case has been discussed with Dr. Vega. Further recommendations regarding plan of care as per his assessment. I spent a total of 30 minutes on the date of service in preparation, delivery, documentation of the care provided to the patient excluding any time spent in the performance of separately billed services. PEGGY Mccann [facility] Cardiology [facility] Admission and Anticipated Discharge Date Admission Date: January 20, 2025 Supervising Physician Co-Signing Physician Notes Attending attestation: Case reviewed with the advanced practitioner. I have personally performed a history and physical examination on the patient. I have reviewed the advanced practitioner's documentation on the date of service referenced in note, and I agree with, and take responsibility for the plan of care. Patient feeling subjectively improved. Lower extremity edema improved compared to admission and compared to her usual baseline. Some residual likely related to chronic lymphedema. Telemetry reveals sinus rhythm in the 60s . Denies any symptoms suggestive angina. Left ventricular ejection fraction on resting echocardiogram performed 02/16/2025 mildly reduced in the range of 45 to 50% with borderline global hypokinesis of the left ventricle and sever hypokinesis of the basal posterior segment. * Holding diuretics, likely transition to furosemide 40 mg versus torsemide 20 mg p.o. on 01/27/2025 * Prior to hospital treatment with atenolol has been discontinued due to presentation with marked sinus bradycardia * Prior to hospital treatment with amlodipine 2.5 mg daily has been titrated to 10 mg daily which is likely not an ideal medication given her lower extremity edema * Will hold enalapril for 36 hours prior to initiation of Entresto for blood pressure lowering effects and CHF effects. Will then attempt to wean down amlodipine treatment * Continue Jardiance 10 mg daily * Patient states her mother had received physical therapy/lymphedema therapy with [facility], and this may be a good option for patient at time of discharge * Continue spironolactone. * Hydralazine on hold for now-Perhaps with combination of loop diuretic, spironolactone, Entresto, would not be necessary * Continue subcutaneous heparin for DVT prophylaxis * Plan for ischemic workup as an outpatient with 2-day protocol pharmacologic nuclear stress test. Same protocol as the patient received in 2016. I will place the order in her outpatient chart.Her PCP had previously ordered an outpatient echocardiogram. This can be canceled. I spent a total of 20 minutes coordinating, documenting, and providing care for this patient excluding time spent in the performance of separately billed services or time spent by another provider. Diony Vega DO Subjective 01/26/2025: Patient seen and examined in follow up today. Feeling well overall. spouse is present visiting. Patient continues to endorse improvement in her breathing, no chest pain, pressure or palpitations. Continues to report improvement in her lower extremity swelling Labs, vitals, diagnostics, telemetry and documentation reviewed. Telemetry reviewed showing SR rates 60-70's Review of Systems Review of Systems: All systems reviewed & are unremarkable except as noted in HPI & below Physical Exam Constitutional: + overweight; no acute distress and not ill appearing Neck: normal visual inspection and trachea midline Respiratory: normal respiratory effort; no respiratory distress, no labored breathing and no cough Auscultation: + diminished lung sounds (bilateral bases ); no crackles, no rales and no rhonchi Cardiovascular: Rate/Rhythm: regular rate and regular rhythm Heart Sounds: normal S1 and normal S2 Vessels: dorsalis pedis pulses present; no JVD Extremities: + edema (+ 1 BLE) Skin: no rashes, warm and dry Psychiatric: A+Ox3, euthymic affect Results & Data Vital Signs (Past 12 Hours) Vital Signs Temp Pulse Resp BP Pulse Ox O2 Del Method 01/26/25 11:46 36.6 C 65 18 149/82 H 94 Room Air 01/26/25 08:00 36.7 C 72 20 145/60 H 96 Room Air 01/26/25 02:39 36.6 C 68 18 138/72 93 Room Air Laboratory Results Comprehensive Metabolic Panel 01/26/25 Range/Units 06:13 Sodium 138 (136-145) mmol/L Potassium 4.8 (3.5-5.1) mmol/L Chloride 102 (98-107) mmol/L Carbon Dioxide 28 (21-32) mmol/L BUN 40 H (6-23) mg/dl Creatinine 1.62 H (0.6-1.2) mg/dl Glucose 192 H (70-99(Fasting)) mg/dl Calcium 9.4 (8.6-10.3) mg/dl Intake and Output 01/25/25 01/26/25 01/26/25 22:59 06:59 14:59 Intake Total 200 / 1550 Output Total 950 / 3365 775 / 3365 200 / 200 Balance -950 / -1815 -575 / -1815 -200 / -200 Intake: Oral 200 / 1550 Output: Urine 950 / 3365 775 / 3365 200 / 200 Other: Weight 112.9 kg Weight Measurement Method Standing Scale PG Care Time/CCT Total # of Minutes Spent Total Time Spent with Patient: Total time spent is greater than 50% in coordination of care (as documented) at patient's floor/unit and/or counseling patient: Coding Level of Care Code 30794 SUB INP/OBS CARE 3/50MIN History Detailed Exam Detailed Medical Decision Making High Complexity Diagnoses Acute decompensated heart failure I50.9 Volume overload E87.70 Elevated troponin R79.89 Bradycardia, sinus R00.1 Hypertensive heart disease I11.9 Diastolic dysfunction I51.89 Time Spent (min) 40 Comment PEGGY Paul spent 20 minutes, Diony Vega DO spent 20 minutes
--- NOTE | 2025-01-26 13:05 | Hospitalist Progress Note ---
Date of Service January 26, 2025 Assessment & Plan (1) Acute decompensated heart failure: (2) Pulmonary edema: (3) Diastolic dysfunction: (4) Bradycardia, sinus: (5) Hypertensive heart disease: Plan: History of hypertensive heart disease and diastolic dysfunction Presented with increasing leg swelling and weight gain with exertional shortness of breath EKG shows sinus bradycardia Echocardiogram shows EF slightly reduced to 45 to 50% with mod concentric LVH. Patient diuresed with IV Lasix 40 mg twice daily with good diuresis; -15.8 L Her creatinine is uptrending; will hold additional Lasix; plan to switch to po tomorrow. Add Jardiance 10 mg every day Late-night salivary cortisol added for workup for [place]'s syndrome-pending Hypertensive urgency Amlodipine increased to 10 mg every day Plan to add Entresto to help with blood pressure and borderline EF hydralazine is discontinued Sinus bradycardia - monitor for significant pause; atenolol discontinued Elevated troponin Mildly elevated could be secondary to hypertension; monitor for chest pain (6) Factor V deficiency: Plan: No history of DVT and/or embolism Has not been taking any medications that is anticoagulation for known history of factor V Leiden deficiency (7) Hypothyroidism: Plan: Continue home meds (8) Type II diabetes mellitus: Plan: Will hold metformin Continue with insulin and put her on sliding scale insulin coverage Reports nocturnal hypoglycemia at home; will modify her regimen at discharge depending on blood glucose and insulin requirement during the hospitalization. (9) Asthma: Plan: History of asthma Controlled now with current medications and will continue DVT prophylaxis subcu heparin CODE STATUS full Plan of care discussed with patient's at bedside. Answer questions/queries Time spent evaluating patient, direct bedside care, chart review, placing orders, interpretation of diagnostic studies, discussion with consultants, patient, and family members, as well as other required patient management activities is 50 minutes please note the above document was generated using voice recognition software. It may contain grammatical, syntax or spelling errors. Any formal questions or concerns about the content, text or information contained within the body of this dictation should be directly addressed to the provider for clarification Admission and Anticipated Discharge Date Admission Date: January 20, 2025 Subjective patient seen and examined at bedside. She continues to feel better overall. Significant improvement in swelling. No significant events overnight Review of Systems Review of Systems: All systems reviewed & are unremarkable except as noted in Subjective Physical Exam Physical Exam: Constitutional: Alert oriented x 3; not in distress. Respiratory: normal respiratory effort, lungs clear to auscultation, no wheeze, rales, rhonchi. Normal insp/exp effort, no accessory muscle use Cardiovascular: RRR, no murmur, no edema Vessels: no JVD or carotid bruit Chest: normal inspection of chest Abdomen: Pitting edema on the abdomen. Nontender Musculoskeletal: trace pitting edema Skin: no rashes, warm and dry normal turgor Neurologic: PERRL, EOMI, accommodation nl, no face palsy, no dysarthria CN's II- XI intact bilaterally and moves all extremities Psychiatric: A+Ox3, euthymic affect Results & Data Results & Data Vital Signs (Past 12 Hours) Vital Signs Temp Pulse Resp BP Pulse Ox O2 Del Method 01/26/25 11:46 36.6 C 65 18 149/82 H 94 Room Air 01/26/25 08:00 36.7 C 72 20 145/60 H 96 Room Air 01/26/25 02:39 36.6 C 68 18 138/72 93 Room Air
[2025-01-27 07:04] LABS: Anion Gap 8.0 (3-11); Blood Urea Nitrogen 36.0 mg/dl (6-23); Calcium 9.4 mg/dl (8.6-10.3); Carbon Dioxide 26.0 mmol/L (21-32); Chloride 104.0 mmol/L (98-107); Creatinine Clr Calc Pharmacy 56.3 ml/min; Glucose 160.0 mg/dl (70-99(Fasting)); Potassium 4.6 mmol/L (3.5-5.1); Sodium 138.0 mmol/L (136-145)
[2025-01-27] MEDS: VALSARTAN/SACUBITRIL 26/24MG TAB PO SCH (08:31)
[2025-01-27] MEDS: LANTUS PER UNIT CHARGE SC SCH (08:33)
--- NOTE | 2025-01-27 09:06 | Cardiology Progress Note ---
Date of Service January 27, 2025 Assessment & Plan (1) Acute decompensated heart failure: (2) Volume overload: (3) Elevated troponin: (4) Bradycardia, sinus: (5) Hypertensive heart disease: (6) Diastolic dysfunction: Plan Assessment: 65-year-old female with longstanding hypertension, hypertensive heart disease, diastolic dysfunction, underlying asthmatic lung disease, type 2 diabetes mellitus, and factor V Leiden mutation admitted to [facility] with evidence of acute decompensated heart failure with mildly reduced ejection fraction, marked sinus bradycardia, uncontrolled hypertension. Troponin minimally elevated, without acute ST segment change on EKG, and without overt angina symptoms. Plan: 01/24/2025: -patient continues to diurese well, continue Lasix 40mg IV BID, -2195ml fluid deficit -BP controlled, Continue Amlodipine, Enalapril, Hydralazine and Aldactone -Continue Jardiance for diabetes management as well as part of HF regimen -Strict I&O and daily weights with standing scale -Close monitoring of renal function and serum electrolytes with Goal serum K> 4.0 and serum mag > 2.0 -CHF teaching -2000mg or less sodium restriction diet. -Echocardiogram shows borderline hypokinesis of the LV with subtle hypokinesis of the posterior base. Mild reduction in LVEF 45-50%. Patient's EKG demonstrates bradycardia and IVCD, but no evidence of heart block. Significant family history of coronary disease. Would recommend stress test as outpatient for further evaluation. patient remains chest pain free -Agree with Dr. Solorzano, that patient should have Hayden syndrome workup at some juncture, this can be managed by primary team. 01/25/2025: -Patient continues to demonstrate clinical improvement from a cardiac perspective. -Diuresing well, -12Kg weight deficit. -Continue Lasix 40mg IV BID -Continue Jardiance for diabetes management as well as part of HF regimen -Strict I&O and daily weights with standing scale -Close monitoring of renal function and serum electrolytes with Goal serum K> 4.0 and serum mag > 2.0 -CHF teaching -2000mg or less sodium restriction diet. -discussed with patient that when she is stable for discharge, she will need close cardiology follow up with our office as well as plan to pursue OP ischemic work up due to current history/symptoms, recent test results and family history. 01/26/2025: -patient continues to show clinical improvement from a cardiac perspective. -Diuresing well -1365ml fluid balance. IV lasix placed on hold. discontinue in lieu of transitioning to Lasix 40mg PO Daily starting tomorrow. Serum K 4.8. Stop potassium supplementation. -Continue Aspirin 81mg, Atorvastatin 20mg daily. -Will avoid beta blockers at this time due to bradycardia on admission. -Continue jardiance for DM and as part of HF regimen. -Continue Spironolactone and Hydralazine. -Strict I&O and daily weights. close monitoring of renal function and electrolytes. Low sodium diet. -CHF teaching. -Recommend OP lymphedema/management evaluation -Patient will need follow up with Cardiology to establish care as well as a nuclear stress test for further evaluation of mild decline in LVEF in conjunction with multiple risk factors. -recommend OP labs (BMP) in one to two weeks 01/27/2025: -Patient is stable from a cardiac perspective. -CHF teaching including need for daily weights after AM void, continue to follow a low sodium diet and need for OP non-fasting labs in one week (CMP, and MAG) -Recommend sleep apnea work up outpatient. -Continue Atorvastatin 20mg for cholesterol control -Start furosemide 40mg PO QD. No potassium supplementation at this time. -Continue ASA 81mg, Amlodipine 10mg, Jardiance 10mg, Spironolactone 25mg PO Daily and Entresto 26/24mg PO BID. -office will contact patient to schedule cardiology follow up as well as nuclear stress test. patient is aware to have non-fasting labs in one week. Case has been discussed with Dr. Vega. Further recommendations regarding plan of care as per his assessment. I spent a total of 30 minutes on the date of service in preparation, delivery, documentation of the care provided to the patient excluding any time spent in the performance of separately billed services. PEGGY Mccann [facility] Cardiology [facility] Admission and Anticipated Discharge Date Admission Date: January 20, 2025 Supervising Physician Co-Signing Physician Notes Attending: Case discussed with PEGGY Paul. Agree with findings and plan as outlined. Fatmata Vega DO Subjective 01/27/2025: Patient seen and examined in follow up today. Feeling well from a cardiac perspective. Offers no acute concerns, hoping to go home today. Labs, vitals, diagnostics, telemetry and documentation reviewed. Telemetry reviewed showing SR rates 60-70's. There is a single notation of a 6 beat run of VT at 0711 this AM. Patient was asleep. Patient denies any chest pain, pressure, palpitations, no shortness of breath, PND, pre-syncope, syncope. Review of Systems Review of Systems: All systems reviewed & are unremarkable except as noted in HPI & below Physical Exam Constitutional: + overweight; no acute distress and not ill appearing Neck: normal visual inspection and trachea midline Respiratory: normal respiratory effort; no respiratory distress, no labored breathing and no cough Auscultation: + diminished lung sounds (bilateral bases ); no crackles, no rales and no rhonchi Cardiovascular: Rate/Rhythm: regular rate and regular rhythm Heart Sounds: normal S1 and normal S2 Vessels: dorsalis pedis pulses present; no JVD Extremities: + edema (+ 1 BLE) Skin: no rashes, warm and dry Psychiatric: A+Ox3, euthymic affect Results & Data Vital Signs (Past 12 Hours) Vital Signs Temp Pulse Resp BP BP Pulse Ox O2 Del Method 01/27/25 07:37 36.3 C L 63 17 176/79 H 97 Room Air 01/27/25 02:32 36.6 C 70 18 162/76 H 94 Room Air 01/26/25 22:22 36.7 C 65 15 134/75 96 Room Air Laboratory Results Comprehensive Metabolic Panel 01/27/25 Range/Units 05:34 Sodium 138 (136-145) mmol/L Potassium 4.6 (3.5-5.1) mmol/L Chloride 104 (98-107) mmol/L Carbon Dioxide 26 (21-32) mmol/L BUN 36 H (6-23) mg/dl Creatinine 1.28 H D (0.6-1.2) mg/dl Glucose 160 H (70-99(Fasting)) mg/dl Calcium 9.4 (8.6-10.3) mg/dl Intake and Output 01/26/25 01/27/25 01/27/25 22:59 06:59 14:59 Intake Total 240 / 240 Output Total 150 / 1100 750 / 1100 Balance -150 / -860 -510 / -860 Intake: Oral 240 / 240 Output: Urine 150 / 1100 750 / 1100 Other: Weight 111.1 kg Weight Measurement Method Standing Scale PG Care Time/CCT Total # of Minutes Spent Total Time Spent with Patient: Total time spent is greater than 50% in coordination of care (as documented) at patient's floor/unit and/or counseling patient: Coding Level of Care Code 07908 SUB INP/OBS CARE 3/50MIN History Detailed Exam Detailed Medical Decision Making High Complexity Diagnoses Acute decompensated heart failure I50.9 Volume overload E87.70 Elevated troponin R79.89 Bradycardia, sinus R00.1 Hypertensive heart disease I11.9 Diastolic dysfunction I51.89 Time Spent (min) 30
[2025-01-27] MEDS: FUROSEMIDE 40 MG TAB PO SCH (10:23)
[2025-01-27 11:28] VITALS: BP 159/78; PULSE 72; RESP 18; TEMP 97.7; O2SAT 95
--- NOTE | 2025-01-27 12:48 | Discharge Summary ---
Date of Service January 27, 2025 Admission HPI Per Admitting Provider She is a 65-year-old obese female with significant past medical history of longstanding hypertension, hypertensive heart disease, with diastolic dysfunction, type 2 diabetes on insulin, factor V Leiden mutation and also asthma apparently has been complaining of swelling of the legs associated with increasing weight gain of about 10 to 12 pounds over 1 month. She complains to have shortness of breath with exertion but denies any chest pain and/or palpitation. She denies any abdominal pain, any nausea or vomiting and does not have any urinary and/or bowel problem. She went to see her PCP this morning and was noted to be very bradycardic and was sent into ER for further evaluation noted to have acute decompensated heart failure with significant bradycardia associated with fluid overload. She will be admitted to telemetry unit for continued care. Admission Exam Per Admitting Provider Physical Exam: Lying in bed without any acute distress Constitutional: well developed, well nourished, + ill appearing and + morbidly obese Eyes: PERRL, conjunctivae normal, anicteric sclerae ENMT: external ear and nose normal, oropharynx normal Neck: trachea midline, no thyromegaly Respiratory: no respiratory distress Auscultation: + diminished lung sounds and + crackles ( minimal bibasilar crackles); no wheezes Cardiovascular: Rate/Rhythm: regular rate, regular rhythm and + bradycardic Heart Sounds: normal S1 and normal S2; no murmur Extremities: + edema ( 2+ edema bilaterally) Gastrointestinal (Abdomen): Inspection/Auscultation: + abdomen distended and normal bowel sounds Percussion/Palpation: abdomen soft; abdomen nontender Musculoskeletal: No acute arthritis involving any of the joint Neurologic: normal touch/pain/proprioception and moves all extremities; no focal motor deficits Lymphatic: no cervical or axillary lymphadenopathy Principal Diagnosis (1) Acute decompensated heart failure: (2) Pulmonary edema: (3) Diastolic dysfunction: (4) Bradycardia, sinus: (5) Hypertensive heart disease: Discharge Exam Constitutional: Alert oriented x 3; not in distress. Respiratory: normal respiratory effort, lungs clear to auscultation, no wheeze, rales, rhonchi. Normal insp/exp effort, no accessory muscle use Cardiovascular: RRR, no murmur, no edema Vessels: no JVD or carotid bruit Chest: normal inspection of chest Abdomen: Pitting edema on the abdomen. Nontender Musculoskeletal: trace pitting edema Skin: no rashes, warm and dry normal turgor Neurologic: PERRL, EOMI, accommodation nl, no face palsy, no dysarthria CN's II- XI intact bilaterally and moves all extremities Psychiatric: A+Ox3, euthymic affect Discharge Data Allergies Allergy/AdvReac Type Severity Reaction Status Date / Time coconut Allergy Intermediate Hives Verified 01/20/25 17:06 Sulfa (Sulfonamide Allergy Unknown HIVES Verified 01/20/25 17:06 Antibiotics) azithromycin AdvReac Severe Diarrhea Verified 01/20/25 17:06 Consultations 01/20/25 14:58 ED Decision to Admit Stat Hospital Course (1) Acute decompensated heart failure: (2) Pulmonary edema: (3) Diastolic dysfunction: (4) Bradycardia, sinus: (5) Hypertensive heart disease: (6) Factor V deficiency: (7) Hypothyroidism: (8) Type II diabetes mellitus: (9) Asthma: Acute on chronic HFpEF Sinus bradycardia Hypertensive urgency History of hypertensive heart disease and diastolic dysfunction Presented with increasing leg swelling and weight gain with exertional shortness of breath EKG shows sinus bradycardia Echocardiogram shows EF slightly reduced to 45 to 50% with mod concentric LVH. During the hospitalization, patient was diuresed with IV Lasix with significant improvement in bilateral lower extremity edema; -16 L at the time of the discharge. Atenolol was discontinued due to bradycardia. Patient did not have any pauses/significant bradycardia during the hospitalization. Entresto was added for blood pressure management/borderline EF. Lasix 40 mg once a day was also added along with Jardiance to help with diuresis at the time of the discharge. Patient had reported nocturnal hypoglycemia at home prior to admission; her insulin regimen was modified based on the blood glucose level during the hospitalization. Patient to follow-up with PCP and cardiology after discharge Please note the above document was generated using voice recognition software. It may contain grammatical, syntax or spelling errors. Any formal questions or concerns about the content, text or information contained within the body of this dictation should be directly addressed to the provider for clarification Total Time Total Time Spent Total Time Spent (In Minutes): 45 Total Time Includes: Examination of the Patient, Discharge Planning, Medication Reconciliation, Communication With Other Providers and Other Discharge Plan Discharge Items Patient Disposition: Home - Self-Care Reason For Visit: BILATERAL LEGS SWELLING, WEIGHT PAIN, CHF Discharge Diagnosis: (1) Acute decompensated heart failure: (2) Pulmonary edema: (3) Diastolic dysfunction: (4) Bradycardia, sinus: (5) Hypertensive heart disease: Condition on Discharge: Fair Activity: Resume your previous activity Non-emergency contact: Primary Care Provider Call non-emergency contact if: you have any medication questions and your symptoms worsen Follow-up/Referrals: Jennifer Bergeron DO [Primary Care Provider] - (The office will call you with a follow up appointment.) Diet: Carb Consistent or DM2 Addtl Attending Provider Instructions: You were admitted to the hospital due to heart failure. You underwent evaluation by cardiology during the hospitalization. You are found to have low heart rate as well. Following changes have been made to your medication regimen; Stop taking amlodipine 2.5 mg. A new prescription of amlodipine 10 mg has been sent to the pharmacy. Stop taking atenolol Stop taking benazepril Stop taking indapamide Start taking Entresto 1 tablet twice a day Start taking Lasix 40 mg once a day Start taking Jardiance 10 mg once a day Start taking spironolactone 25 mg once a day Please decrease the dose of Lantus to 35 units twice a day. The dose is based on your blood glucose level during the hospitalization. Please decrease the dose of short acting insulin to 12 units from 25 units; add sliding scale based on your meal. Please weigh yourself daily at the same time. Make a log of it. If you notice your weight has increased by 5 pounds; you will need adjustment of your diuretics. Please reach out to your primary care doctor. Pending Studies at Discharge: Yes Studies:: salivary cortisol Stand-Alone Forms: My [employer], Smoking Cessation Medications and DC Order Prescriptions: New furosemide 40 mg Tablet 40 mg PO QAM Qty: 30 0RF spironolactone 25 mg Tablet 25 mg PO QAM Qty: 30 0RF Jardiance 10 mg Tablet 10 mg PO DAILY Qty: 30 0RF Entresto 24-26 mg Tablet 1 tab PO BID Qty: 30 0RF amlodipine 10 mg tablet 10 mg PO DAILY Qty: 30 0RF Continued potassium chloride 10 mEq capsule, extended release 10 meq PO QAM multivitamin tablet 1 tab PO QAM Rx Instructions: Centrum Silver Women 50+ montelukast [Singulair] 10 mg tablet 10 mg PO QAM Rx Instructions: 01/20/25 : ordered 1 tablet at HS. Pt taking 1 tablet in the AM. aspirin [Enteric Coated Aspirin] 81 mg tablet,delayed release (DR/EC) 81 mg PO QAM Novolog PenFill U-100 Insulin 100 unit/mL cartridge 0 sliding scale dose SQ USEASDIRECTD Rx Instructions: 01/20/25 : inject up to 150 units once daily fluticasone propionate [Flonase Allergy Relief] 50 mcg/actuation spray,suspension 2 sprays INTNAS QAM fexofenadine [Jessica Allergy] 180 mg tablet 180 mg PO QAM cholecalciferol (vitamin D3) 2,000 unit capsule 2,000 units PO QAM gabapentin 100 mg capsule 300 mg PO QAM Rx Instructions: 01/20/25 : med ordered 3 capsules twice a day. Pt taking 3 capsules in AM and 2 capsules in PM. gabapentin 100 mg Capsule 200 mg PO QPM Rx Instructions: 01/20/25 : med ordered 3 capsules twice a day. Pt taking 3 capsules in AM and 2 capsules in PM. metformin 500 mg tablet extended release 24 hr 2,000 mg PO QAM levothyroxine 200 mcg tablet 200 mcg PO DAILYBB omeprazole 40 mg capsule,delayed release(DR/EC) 40 mg PO QAM albuterol sulfate 90 mcg/actuation HFA aerosol inhaler 2 puff INHALATION Q4H PRN (Reason: Wheezing) atorvastatin 40 mg tablet 40 mg PO QAM Ozempic 2 mg/dose (8 mg/3 mL) pen injector 2 mg SUBCUT WK Rx Instructions: TAKE THIS MED EVERY FRIDAY. triamcinolone acetonide 0.1 % cream 1 applic TOPICAL BID PRN (Reason: Skin Irritation) Rx Instructions: APPLY TO BACK NEEDED. melatonin 2.5 mg Tablet,Chewable 5 mg PO HS Rx Instructions: 2 tablets at bedtime acetaminophen 650 mg Tablet Extended Release 1,300 mg PO QAM Changed insulin glargine [Lantus U-100 Insulin] 100 unit/mL solution 35 units SQ AMPM Qty: 0 0RF Discontinued atenolol 50 mg tablet 50 mg PO QAM amlodipine [Norvasc] 2.5 mg tablet 2.5 mg PO QAM indapamide 2.5 mg tablet 5 mg PO QAM benazepril 20 mg tablet 40 mg PO QAM Discharge Orders: Discharge Order (Routine); Ordered 01/27/25 Ordered By: Henry Gordon/Other Patient Handouts: Managing Type 2 Diabetes, Special Foot Care for Diabetes Admission Data Admit Date/Time: 01/20/25 15:31 Attending Provider: Henry Urias Admit Provider: Glenda Escalona Primary Care Provider: Jennifer Bergeron Other Providers: Glenda Escalona Other Interventions: Discharge Summary Assessment (RN) Last Done: 01/27/25 11:24
== END 2025-01-27 12:54 | disposition home or self-care (01) | DRG 291 ==
LOC: ED 13:07 → SUATTDRO 15:31 → 2S 15:31